=== PATIENT | male | born 1950 | race Hispanic/Latino ===

== ENCOUNTER 2020-11-11 09:59 | Inpatient (IN) | payer OTHER, MEDICARE ==
[2020-11-11] VITALS (13 sets, daily range): BP systolic 81–121; BP diastolic 46–66
[~2020-11-11] VITALS: Ht 157.5 cm; Wt 76.1 kg
[~2020-11-11 09:59] MED LIST: ACET80TA PO; AMLO-257 PO; ATOR40TA71 PO; BALS60OI TP; GLUC1VIA14 IJ; INSU100I26 SQ; LACT10SO9 PO; LEVO75TA10 PO; LOPE-198 PO; MAGIC240 MM; METO25 PO; MULT-685 PO; NYST15CR2 TP; ONDA4TAB10 PO; SENN8.6T32 PO; vit c PEG
[2020-11-11 10:19] LABS: BASOPHILS % (AUTO) 0.4 % (0.0-5.0); EOSINOPHILS % (AUTO) 0.1 % (0.0-8.0); HEMATOCRIT 33.9 % (42-54); LYMPHOCYTES % (AUTO) 8.4 % (21.0-51.0); MEAN CORPUSCULAR HGB CONC 29.2 g/dL (32.0-36.0); MEAN CORPUSCULAR VOLUME 102.7 fL (79-99); MONOCYTES % (AUTO) 2.4 % (3.0-13.0); NEUTROPHILS % (AUTO) 86.8 % (40.0-77.0); PLATELET COUNT (AUTO) 446 K/uL (130-400); RED CELL DISTRIBUTION WIDTH 17.7 % (11.0-15.5)
[2020-11-11 10:21] LABS: APPEARANCE,URINE Cloudy (CLEAR); BILIRUBIN,URINE Negative (NEGATIVE); COLOR,URINE Dark Yellow (YELLOW); GLUCOSE, URINE (UA) Negative (NEGATIVE); KETONES,URINE Negative (NEGATIVE); LEUKOCYTE ESTERASE ,URINE Trace (NEGATIVE); NITRATE,URINE Negative (NEGATIVE); OCCULT BLOOD,URINE Trace (NEGATIVE); PH,URINE 5.5 (5.0-8.0); PROTEIN,URINE POS 2+ mg/dL (NEGATIVE); UROBILINOGEN,URINE 0.2 mg/dL (0.2-1.0)
[2020-11-11 10:24] LABS: WHITE BLOOD COUNT (AUTO) 42.6 K/uL (4.8-10.8)
[2020-11-11 10:26] LABS: CARBON DIOXIDE 36 mmol/L (21-32); CHLORIDE 102 mmol/L (101-111); CREATININE 0.9 mg/dL (0.5-1.5); GLOMERULAR FILTR. RATE CALC 89 mL/min (>60); GLUCOSE,RANDOM 216 mg/dL (70-105); POTASSIUM 4.8 mmol/L (3.5-5.1); SODIUM SERUM 140 mmol/L (136-145); UREA NITROGEN, BLOOD 39 mg/dL (7-18)
[2020-11-11 10:29] LABS: INR 1.11 (0.85-1.15); PROTHROMBIN TIME 11.8 SEC (9.6-11.6)
[2020-11-11 10:30] LABS: PARTIAL THROMBOPLASTIN TIME 25.2 SEC (26.3-35.5)
[2020-11-11 10:35] LABS: BACTERIA,URINE Few /HPF (None Seen); CALCIUM OXALATE CRYSTALS,UR Moderate /LPF (None Seen); HYALINE CASTS, URINE 0-1 /LPF (0-1 /LPF); MUCUS,URINE Few LPF (None Seen)
[2020-11-11 10:37] LABS: ALANINE AMINOTRANSFERASE 17 U/L (12-78); ALBUMIN 2.2 g/dL (3.5-5.0); ASPARTATE AMINOTRANSFERASE 70 U/L (10-37); BILIRUBIN,TOTAL 0.4 mg/dL (0.2-1.0); CREATINE KINASE, TOTAL 121 U/L (21-232); MYOGLOBIN 82 ng/mL (10-92); TOTAL PROTEIN, SERUM 7.5 g/dL (6.0-8.3); TROPONIN I < 0.04 ng/mL (0.00-0.06)
[2020-11-11] MEDS ORDERED: ZOSYN 3.375GM+NS 50ML 50 ML IV ONE (10:49)
[2020-11-11] MEDS ORDERED: 0.9%NACL 1000ML 1,000 ML IV ONE (10:50)
[2020-11-11 11:09] LABS: ABG BASE EXCESS 4.8 mmol/L (-2.0-3.0); ABG HCO3 36.9 mmol/L (21.0-28.0); ABG OXYGEN SATURATION 92.2 % (95.0-99.0); ABG PCO2 98 mmHg (35-48)
[2020-11-11 11:21] LABS: BAND NEUTROPHILS % (MANUAL) 9 % (0-2); LYMPHOCYTES % (MANUAL) 14 % (22-44); METAMYELOCYTES % 1 % (0-0); MONOCYTES % (MANUAL) 3 % (2-9); SEGMENTED NEUTROPHILS % 73 % (40-70)
[2020-11-11 13:17] LABS: ABG BASE EXCESS 5.2 mmol/L (-2.0-3.0); ABG HCO3 39.2 mmol/L (21.0-28.0); ABG OXYGEN SATURATION 87.2 % (95.0-99.0); ABG PCO2 120 mmHg (35-48)
[2020-11-11 14:23] LABS: ABG BASE EXCESS 4.4 mmol/L (-2.0-3.0); ABG HCO3 33.8 mmol/L (21.0-28.0); ABG PCO2 73 mmHg (35-48)
[2020-11-11] MEDS ORDERED: MIDAZOLAM HCL 5 MG/ML 2ML VIAL IV ONE (15:32)
[2020-11-11] MEDS: LEVOFLOXACIN 500 MG/D5W 100 ML 100 ML IV SCH (15:45)
[2020-11-11] MEDS ORDERED: ZOSYN 3.375GM+NS 50ML 50 ML IV SCH (15:45)
[2020-11-11] MEDS ORDERED: NOREPINEPHRIN 4MG/NS 250ML 250 ML IV STA (15:46)
[2020-11-11] MEDS ORDERED: MAGNESIUM 2GM PREMIX 50ML 50 ML IV ONE (15:49)
[2020-11-11] MEDS ORDERED: SOLU-MEDROL 125MG VIAL ONE (16:00)
[2020-11-11] MEDS ORDERED: ETOMIDATE 20MG VIAL IVP ONE (16:29)
[2020-11-11] MEDS ORDERED: ROCURONIUM BROMIDE 10MG/1ML 5ML VL IV ONE (16:29)
[2020-11-11 16:58] LABS: ABG BASE EXCESS 4.3 mmol/L (-2.0-3.0); ABG HCO3 31.2 mmol/L (21.0-28.0); ABG OXYGEN SATURATION 88.7 % (95.0-99.0); ABG PCO2 56 mmHg (35-48)
[2020-11-11] MEDS ORDERED: LEVOFLOXACIN 500 MG/D5W 100 ML 100 ML ONE (17:46)
[2020-11-11] MEDS ORDERED: NOREPINEPHRIN 4MG/NS 250ML 250 ML IV ONE (19:43)
[2020-11-11] MEDS: ZOSYN 3.375GM+NS 50ML 50 ML IV SCH (21:07)
[2020-11-12] VITALS (30 sets, daily range): BP systolic 97–134; BP diastolic 49–72
[2020-11-12 03:04] LABS: ABG BASE EXCESS 1.5 mmol/L (-2.0-3.0); ABG HCO3 24.8 mmol/L (21.0-28.0); ABG OXYGEN SATURATION 96.8 % (95.0-99.0); ABG PCO2 35 mmHg (35-48)
[2020-11-12 03:58] LABS: BASOPHILS % (AUTO) 0.2 % (0.0-5.0); EOSINOPHILS % (AUTO) 0.2 % (0.0-8.0); HEMATOCRIT 28.2 % (42-54); LYMPHOCYTES % (AUTO) 4.5 % (21.0-51.0); MEAN CORPUSCULAR HEMOGLOBIN 29.6 pg (27.0-33.0); MEAN CORPUSCULAR HGB CONC 30.5 g/dL (32.0-36.0); MEAN CORPUSCULAR VOLUME 96.9 fL (79-99); MONOCYTES % (AUTO) 0.8 % (3.0-13.0); NEUTROPHILS % (AUTO) 93.2 % (40.0-77.0); NUCLEATED RED BLOOD CELLS 0.1 % (0.0-0.19); PLATELET COUNT (AUTO) 411 K/uL (130-400); RED BLOOD CELL COUNT(AUTO) 2.91 MIL/uL (4.50-6.20); RED CELL DISTRIBUTION WIDTH 17.4 % (11.0-15.5); WHITE BLOOD COUNT (AUTO) 29.9 K/uL (4.8-10.8)
[2020-11-12 04:27] LABS: ALBUMIN 1.9 g/dL (3.5-5.0); BILIRUBIN,TOTAL 0.9 mg/dL (0.2-1.0); CREATININE 1.3 mg/dL (0.5-1.5); POTASSIUM 4.2 mmol/L (3.5-5.1); TOTAL PROTEIN, SERUM 6.8 g/dL (6.0-8.3)
[2020-11-12 04:41] LABS: CRP QUANTITATIVE 331.7 mg/L (0.00-9.0)
[2020-11-12] MEDS: ZOSYN 3.375GM+NS 50ML 50 ML IV SCH ×3 (05:01→20:40)
[2020-11-12] MEDS: PROPOFOL 1000 MG/100 ML 100 ML IV SCH (06:34)
[2020-11-12] MEDS: ENOXAPARIN SODIUM 40 MG/0.4 ML SYRINGE SQ SCH (08:08)
[2020-11-12] MEDS: PANTOPRAZOLE 40 MG/VIAL IVP SCH (08:08)
[2020-11-12 09:20] LABS: ABG BASE EXCESS 1.7 mmol/L (-2.0-3.0); ABG PCO2 40 mmHg (35-48)
[2020-11-12] MEDS: LEVOFLOXACIN 500 MG/D5W 100 ML 100 ML IV SCH (15:20)
[2020-11-13] VITALS (36 sets, daily range): BP systolic 82–134; BP diastolic 50–88
[2020-11-13 03:45] LABS: BASOPHILS % (AUTO) 0.2 % (0.0-5.0); EOSINOPHILS % (AUTO) 0.1 % (0.0-8.0); HEMATOCRIT 28.4 % (42-54); LYMPHOCYTES % (AUTO) 4.7 % (21.0-51.0); MEAN CORPUSCULAR HEMOGLOBIN 29.6 pg (27.0-33.0); MEAN CORPUSCULAR HGB CONC 31.3 g/dL (32.0-36.0); MEAN CORPUSCULAR VOLUME 94.4 fL (79-99); NEUTROPHILS % (AUTO) 91.3 % (40.0-77.0); PLATELET COUNT (AUTO) 450 K/uL (130-400); RED BLOOD CELL COUNT(AUTO) 3.01 MIL/uL (4.50-6.20); RED CELL DISTRIBUTION WIDTH 17.6 % (11.0-15.5)
[2020-11-13 03:47] LABS: WHITE BLOOD COUNT (AUTO) 31.1 K/uL (4.8-10.8)
[2020-11-13 03:59] LABS: ALBUMIN 1.7 g/dL (3.5-5.0); BILIRUBIN,TOTAL 0.9 mg/dL (0.2-1.0); CREATININE 1.9 mg/dL (0.5-1.5); POTASSIUM 4.1 mmol/L (3.5-5.1); TOTAL PROTEIN, SERUM 6.9 g/dL (6.0-8.3)
[2020-11-13 04:18] LABS: CRP QUANTITATIVE 333.4 mg/L (0.00-9.0)
[2020-11-13] MEDS: ZOSYN 3.375GM+NS 50ML 50 ML IV SCH ×2 (04:59→12:07)
[2020-11-13 05:15] LABS: ABG BASE EXCESS 3.3 mmol/L (-2.0-3.0); ABG HCO3 26.8 mmol/L (21.0-28.0); ABG OXYGEN SATURATION 96.6 % (95.0-99.0); ABG PCO2 37 mmHg (35-48)
[2020-11-13] MEDS ORDERED: INSULIN GLARGINE 100 UNITS/ML 10 ML VIAL SQ SCH (08:30)
[2020-11-13] MEDS: PANTOPRAZOLE 40 MG/VIAL IVP SCH (09:35)
[2020-11-13] MEDS: FLUCONAZOLE 200 MG/NS 100 ML 100 ML IV SCH (09:36)
[2020-11-13] MEDS: ENOXAPARIN SODIUM 40 MG/0.4 ML SYRINGE SQ SCH (09:36)
[2020-11-13] MEDS: LACTATED RINGERS 1000ML 1,000 ML IV SCH ×2 (09:40→22:20)
[2020-11-13] MEDS ORDERED: VANCOMYCIN PROTOCOL PER PHARMACY IV SCH (14:15)
[2020-11-13] MEDS ORDERED: VANCOMYCIN 1G/250ML KIT 250 ML IV SCH (15:00)
[2020-11-13] MEDS: MEROPENEM 1 GM VIAL IVP SCH ×2 (15:09→21:48)
[2020-11-13] MEDS: FENTANYL 2500MCG+NS 250ML 250 ML IV SCH (18:46)
[2020-11-13] MEDS: PROPOFOL 1000 MG/100 ML 100 ML IV SCH (18:47)
[2020-11-14] VITALS (39 sets, daily range): BP systolic 87–185; BP diastolic 54–110
[2020-11-14] MEDS: PROPOFOL 1000 MG/100 ML 100 ML IV SCH ×2 (03:10→16:29)
[2020-11-14 03:34] LABS: BASOPHILS % (AUTO) 0.2 % (0.0-5.0); HEMATOCRIT 29.5 % (42-54); LYMPHOCYTES % (AUTO) 3.1 % (21.0-51.0); MEAN CORPUSCULAR HEMOGLOBIN 29.6 pg (27.0-33.0); MEAN CORPUSCULAR HGB CONC 31.5 g/dL (32.0-36.0); MEAN CORPUSCULAR VOLUME 93.9 fL (79-99); MONOCYTES % (AUTO) 1.9 % (3.0-13.0); NEUTROPHILS % (AUTO) 92.6 % (40.0-77.0); PLATELET COUNT (AUTO) 365 K/uL (130-400); RED BLOOD CELL COUNT(AUTO) 3.14 MIL/uL (4.50-6.20); RED CELL DISTRIBUTION WIDTH 17.6 % (11.0-15.5); WHITE BLOOD COUNT (AUTO) 26.8 K/uL (4.8-10.8)
[2020-11-14 03:39] LABS: ABG BASE EXCESS 3.2 mmol/L (-2.0-3.0); ABG OXYGEN SATURATION 93.1 % (95.0-99.0); ABG PCO2 43 mmHg (35-48)
[2020-11-14 03:46] LABS: ALBUMIN 1.5 g/dL (3.5-5.0); BILIRUBIN,TOTAL 0.7 mg/dL (0.2-1.0); CREATININE 1.8 mg/dL (0.5-1.5); TOTAL PROTEIN, SERUM 6.2 g/dL (6.0-8.3)
[2020-11-14 04:02] LABS: CRP QUANTITATIVE 199.1 mg/L (0.00-9.0)
[2020-11-14] MEDS: LACTATED RINGERS 1000ML 1,000 ML IV SCH ×2 (04:15→21:30)
[2020-11-14] MEDS: MEROPENEM 1 GM VIAL IVP SCH ×3 (05:50→21:28)
[2020-11-14] MEDS: PANTOPRAZOLE 40 MG/VIAL IVP SCH (08:41)
[2020-11-14] MEDS: FLUCONAZOLE 200 MG/NS 100 ML 100 ML IV SCH (08:44)
[2020-11-14] MEDS: LEVOTHYROXINE 75 MCG TABLET PO SCH (09:46)
[2020-11-14] MEDS ORDERED: LACTATED RINGERS 1000ML 1,000 ML IV ONE ×2 (16:22→21:15)
[2020-11-14] MEDS: FENTANYL 2500MCG+NS 250ML 250 ML IV SCH (16:27)
[2020-11-14] MEDS ORDERED: 0.9%NACL 10ML VIAL ONE (21:15)
[2020-11-15] VITALS (40 sets, daily range): BP systolic 77–133; BP diastolic 42–81
[2020-11-15 00:49] LABS: CREATININE,URINE RANDOM 42 mg/dL (30-135); SODIUM,URINE RANDOM 26 mmol/l (40-220)
[2020-11-15 05:06] LABS: ABG BASE EXCESS -1.8 mmol/L (-2.0-3.0); ABG HCO3 25.3 mmol/L (21.0-28.0); ABG OXYGEN SATURATION 92.2 % (95.0-99.0); ABG PCO2 52 mmHg (35-48)
[2020-11-15] MEDS ORDERED: 0.9%NACL 10ML VIAL ONE (05:20)
[2020-11-15 05:33] LABS: BASOPHILS % (AUTO) 0.3 % (0.0-5.0); EOSINOPHILS % (AUTO) 0.2 % (0.0-8.0); HEMATOCRIT 29.9 % (42-54); LYMPHOCYTES % (AUTO) 9.2 % (21.0-51.0); MEAN CORPUSCULAR HEMOGLOBIN 29.8 pg (27.0-33.0); MEAN CORPUSCULAR HGB CONC 30.4 g/dL (32.0-36.0); MONOCYTES % (AUTO) 2.4 % (3.0-13.0); NEUTROPHILS % (AUTO) 86.4 % (40.0-77.0); PLATELET COUNT (AUTO) 329 K/uL (130-400); RED BLOOD CELL COUNT(AUTO) 3.05 MIL/uL (4.50-6.20); RED CELL DISTRIBUTION WIDTH 17.5 % (11.0-15.5); WHITE BLOOD COUNT (AUTO) 23.1 K/uL (4.8-10.8)
[2020-11-15] MEDS: MEROPENEM 1 GM VIAL IVP SCH ×3 (05:50→22:55)
[2020-11-15 05:51] LABS: CREATININE 1.5 mg/dL (0.5-1.5); MAGNESIUM 1.8 mg/dL (1.80-2.40)
[2020-11-15] MEDS ORDERED: ZINC OXIDE OINT 60GM TUBE TP SCH (09:00)
[2020-11-15] MEDS ORDERED: ZINC OXIDE OINT 30GM TUBE TP SCH (09:00)
[2020-11-15] MEDS: LACTATED RINGERS 1000ML 1,000 ML IV SCH (10:15)
[2020-11-15] MEDS: PANTOPRAZOLE 40 MG/VIAL IVP SCH (10:16)
[2020-11-15] MEDS: LEVOTHYROXINE 75 MCG TABLET PO SCH (10:16)
[2020-11-15] MEDS: FLUCONAZOLE 200 MG/NS 100 ML 100 ML IV SCH (10:17)
[2020-11-15] MEDS: PROPOFOL 1000 MG/100 ML 100 ML IV SCH (10:47)
[2020-11-15] MEDS: MAGNESIUM 2GM PREMIX 50ML 50 ML IV SCH (16:23)
[2020-11-15] MEDS: DEXMEDETOMIDINE HCL 400 MCG in 0.9%NACL 100ML 100 ML IV SCH (21:38)
[2020-11-15] MEDS: ATORVASTATIN 40 MG TABLET PO SCH (22:54)
[2020-11-16] VITALS (38 sets, daily range): BP systolic 100–165; BP diastolic 58–96
[2020-11-16 03:49] LABS: BASOPHILS % (AUTO) 0.3 % (0.0-5.0); EOSINOPHILS % (AUTO) 0.2 % (0.0-8.0); HEMATOCRIT 29.9 % (42-54); LYMPHOCYTES % (AUTO) 6.5 % (21.0-51.0); MEAN CORPUSCULAR HEMOGLOBIN 29.4 pg (27.0-33.0); MEAN CORPUSCULAR HGB CONC 30.4 g/dL (32.0-36.0); MEAN CORPUSCULAR VOLUME 96.8 fL (79-99); MONOCYTES % (AUTO) 2.5 % (3.0-13.0); PLATELET COUNT (AUTO) 328 K/uL (130-400); RED BLOOD CELL COUNT(AUTO) 3.09 MIL/uL (4.50-6.20); RED CELL DISTRIBUTION WIDTH 17.2 % (11.0-15.5); WHITE BLOOD COUNT (AUTO) 21.1 K/uL (4.8-10.8)
[2020-11-16 04:01] LABS: CREATININE 1.3 mg/dL (0.5-1.5); MAGNESIUM 2.2 mg/dL (1.80-2.40); PHOSPHORUS 4.2 mg/dL (2.5-4.9); POTASSIUM 4.2 mmol/L (3.5-5.1)
[2020-11-16] MEDS: MEROPENEM 1 GM VIAL IVP SCH ×3 (06:15→21:18)
[2020-11-16 06:33] LABS: ALBUMIN 1.4 g/dL (3.5-5.0); BILIRUBIN,TOTAL 0.8 mg/dL (0.2-1.0); TOTAL PROTEIN, SERUM 6.2 g/dL (6.0-8.3)
[2020-11-16 07:27] LABS: ABG BASE EXCESS 2.1 mmol/L (-2.0-3.0); ABG HCO3 27.5 mmol/L (21.0-28.0); ABG OXYGEN SATURATION 94.4 % (95.0-99.0); ABG PCO2 46 mmHg (35-48)
[2020-11-16] MEDS: LEVOTHYROXINE 75 MCG TABLET PO SCH (09:14)
[2020-11-16] MEDS: PANTOPRAZOLE 40 MG/VIAL IVP SCH (09:14)
[2020-11-16] MEDS: FLUCONAZOLE 200 MG/NS 100 ML 100 ML IV SCH (09:14)
[2020-11-16] MEDS: DEXMEDETOMIDINE HCL 400 MCG in 0.9%NACL 100ML 100 ML IV SCH ×3 (10:44→19:28)
[2020-11-16 15:53] LABS: APPEARANCE,URINE Cloudy (CLEAR); BILIRUBIN,URINE Negative (NEGATIVE); COLOR,URINE Yellow (YELLOW); GLUCOSE, URINE (UA) TRACE mg/dL (NEGATIVE); KETONES,URINE Trace mg/dL (NEGATIVE); LEUKOCYTE ESTERASE ,URINE Trace (NEGATIVE); NITRATE,URINE Negative (NEGATIVE); OCCULT BLOOD,URINE Moderate (NEGATIVE); PROTEIN,URINE POS 1+ mg/dL (NEGATIVE); UROBILINOGEN,URINE 0.2 mg/dL (0.2-1.0)
[2020-11-16] MEDS ORDERED: HYDROCHLOROTHIAZIDE 25 MG TABLET PO SCH (16:00)
[2020-11-16 16:02] LABS: BACTERIA,URINE Few /HPF (None Seen); MUCUS,URINE Few LPF (None Seen); SQUAMOUS EPITHELIAL CELL,UR Few /HPF (0-2)
[2020-11-16] MEDS: INSULIN HUMULIN R 100 UNIT/ML 3ML SQ SCH (18:00)
[2020-11-16] MEDS: BALSAM PERU/CASTOR OIL 60 GM TUBE TP SCH (20:36)
[2020-11-16] MEDS: ATORVASTATIN 40 MG TABLET PO SCH (20:36)
[2020-11-17] VITALS (23 sets, daily range): BP systolic 96–135; BP diastolic 47–81
[2020-11-17] MEDS: INSULIN HUMULIN R 100 UNIT/ML 3ML SQ SCH ×4 (00:05→18:11)
[2020-11-17] MEDS: DEXMEDETOMIDINE HCL 400 MCG in 0.9%NACL 100ML 100 ML IV SCH ×6 (00:58→23:24)
[2020-11-17 05:31] LABS: BASOPHILS % (AUTO) 0.2 % (0.0-5.0); EOSINOPHILS % (AUTO) 1.3 % (0.0-8.0); HEMATOCRIT 27.8 % (42-54); LYMPHOCYTES % (AUTO) 9.2 % (21.0-51.0); MEAN CORPUSCULAR HEMOGLOBIN 29.6 pg (27.0-33.0); MEAN CORPUSCULAR HGB CONC 31.3 g/dL (32.0-36.0); MEAN CORPUSCULAR VOLUME 94.6 fL (79-99); MONOCYTES % (AUTO) 2.8 % (3.0-13.0); NEUTROPHILS % (AUTO) 84.9 % (40.0-77.0); PLATELET COUNT (AUTO) 324 K/uL (130-400); RED BLOOD CELL COUNT(AUTO) 2.94 MIL/uL (4.50-6.20); WHITE BLOOD COUNT (AUTO) 14.8 K/uL (4.8-10.8)
[2020-11-17 05:57] LABS: MAGNESIUM 1.7 mg/dL (1.80-2.40); POTASSIUM 3.8 mmol/L (3.5-5.1)
[2020-11-17] MEDS: MEROPENEM 1 GM VIAL IVP SCH ×3 (06:10→22:08)
[2020-11-17] MEDS: MAGNESIUM 2GM PREMIX 50ML 50 ML IV SCH (06:11)
[2020-11-17] MEDS: LACTATED RINGERS 1000ML 1,000 ML IV SCH (06:19)
[2020-11-17] MEDS: FLUCONAZOLE 200 MG/NS 100 ML 100 ML IV SCH (10:14)
[2020-11-17] MEDS: LEVOTHYROXINE 75 MCG TABLET PO SCH (10:14)
[2020-11-17] MEDS: PANTOPRAZOLE 40 MG/VIAL IVP SCH (10:14)
[2020-11-17] MEDS: BALSAM PERU/CASTOR OIL 60 GM TUBE TP SCH ×3 (10:15→20:46)
[2020-11-17] MEDS: ATORVASTATIN 40 MG TABLET PO SCH (20:46)
[2020-11-18] VITALS (25 sets, daily range): BP systolic 99–184; BP diastolic 27–100
[2020-11-18] MEDS: DEXMEDETOMIDINE HCL 400 MCG in 0.9%NACL 100ML 100 ML IV SCH (02:47)
[2020-11-18 05:02] LABS: BASOPHILS % (AUTO) 0.3 % (0.0-5.0); EOSINOPHILS % (AUTO) 1.7 % (0.0-8.0); HEMATOCRIT 29.1 % (42-54); LYMPHOCYTES % (AUTO) 12.7 % (21.0-51.0); MEAN CORPUSCULAR HEMOGLOBIN 28.9 pg (27.0-33.0); MEAN CORPUSCULAR HGB CONC 30.9 g/dL (32.0-36.0); MEAN CORPUSCULAR VOLUME 93.6 fL (79-99); PLATELET COUNT (AUTO) 342 K/uL (130-400); RED BLOOD CELL COUNT(AUTO) 3.11 MIL/uL (4.50-6.20); RED CELL DISTRIBUTION WIDTH 16.9 % (11.0-15.5)
[2020-11-18 05:14] LABS: ALBUMIN 1.2 g/dL (3.5-5.0); BILIRUBIN,TOTAL 0.5 mg/dL (0.2-1.0); CREATININE 0.8 mg/dL (0.5-1.5); MAGNESIUM 2.5 mg/dL (1.80-2.40); POTASSIUM 3.8 mmol/L (3.5-5.1); TOTAL PROTEIN, SERUM 5.4 g/dL (6.0-8.3)
[2020-11-18 05:15] LABS: INR 1.03 (0.85-1.15); PROTHROMBIN TIME 11.2 SEC (9.6-11.6)
[2020-11-18 05:17] LABS: PARTIAL THROMBOPLASTIN TIME 26.4 SEC (26.3-35.5)
[2020-11-18] MEDS: MEROPENEM 1 GM VIAL IVP SCH ×3 (05:41→22:13)
[2020-11-18] MEDS: INSULIN HUMULIN R 100 UNIT/ML 3ML SQ SCH ×4 (05:41→17:56)
[2020-11-18 07:33] LABS: ABG HCO3 26.3 mmol/L (21.0-28.0); ABG OXYGEN SATURATION 93.8 % (95.0-99.0); ABG PCO2 36 mmHg (35-48)
[2020-11-18] MEDS: PANTOPRAZOLE 40 MG/VIAL IVP SCH (08:32)
[2020-11-18] MEDS: LEVOTHYROXINE 75 MCG TABLET PO SCH (08:33)
[2020-11-18] MEDS: BALSAM PERU/CASTOR OIL 60 GM TUBE TP SCH ×3 (08:33→20:45)
[2020-11-18] MEDS: LACTATED RINGERS 1000ML 1,000 ML IV SCH (09:29)
[2020-11-18] MEDS ORDERED: LABETALOL 20MG SYG IV PRN (11:45)
[2020-11-18] MEDS ORDERED: FUROSEMIDE 40MG VIAL IV SCH (11:45)
[2020-11-18] MEDS: ATORVASTATIN 40 MG TABLET PO SCH (20:45)
[2020-11-19] VITALS (25 sets, daily range): BP systolic 92–155; BP diastolic 47–68
[2020-11-19] MEDS: LACTATED RINGERS 1000ML 1,000 ML IV SCH ×2 (04:15→21:45)
[2020-11-19 05:09] LABS: BASOPHILS % (AUTO) 0.3 % (0.0-5.0); EOSINOPHILS % (AUTO) 0.1 % (0.0-8.0); HEMATOCRIT 30.7 % (42-54); LYMPHOCYTES % (AUTO) 7.5 % (21.0-51.0); MEAN CORPUSCULAR HEMOGLOBIN 29.6 pg (27.0-33.0); MEAN CORPUSCULAR HGB CONC 29.3 g/dL (32.0-36.0); MONOCYTES % (AUTO) 2.1 % (3.0-13.0); PLATELET COUNT (AUTO) 350 K/uL (130-400); RED BLOOD CELL COUNT(AUTO) 3.04 MIL/uL (4.50-6.20); RED CELL DISTRIBUTION WIDTH 17.1 % (11.0-15.5); WHITE BLOOD COUNT (AUTO) 27.6 K/uL (4.8-10.8)
[2020-11-19 05:15] LABS: CREATININE 0.9 mg/dL (0.5-1.5); POTASSIUM 3.7 mmol/L (3.5-5.1)
[2020-11-19] MEDS: INSULIN HUMULIN R 100 UNIT/ML 3ML SQ SCH ×5 (05:20→23:31)
[2020-11-19] MEDS: MEROPENEM 1 GM VIAL IVP SCH ×3 (05:22→21:38)
[2020-11-19] MEDS: BALSAM PERU/CASTOR OIL 60 GM TUBE TP SCH ×3 (08:57→21:29)
[2020-11-19] MEDS: PANTOPRAZOLE 40 MG/VIAL IVP SCH (08:57)
[2020-11-19] MEDS: LEVOTHYROXINE 75 MCG TABLET PO SCH (08:57)
[2020-11-19 11:28] LABS: ABG BASE EXCESS -4.6 mmol/L (-2.0-3.0); ABG HCO3 26.5 mmol/L (21.0-28.0); ABG OXYGEN SATURATION 53.1 % (95.0-99.0); ABG PCO2 79 mmHg (35-48)
[2020-11-19 11:41] LABS: ABG BASE EXCESS -2.8 mmol/L (-2.0-3.0); ABG HCO3 27.5 mmol/L (21.0-28.0); ABG OXYGEN SATURATION 96.7 % (95.0-99.0); ABG PCO2 75 mmHg (35-48)
[2020-11-19 18:47] LABS: ABG BASE EXCESS -2.7 mmol/L (-2.0-3.0); ABG HCO3 25.7 mmol/L (21.0-28.0); ABG OXYGEN SATURATION 96.5 % (95.0-99.0); ABG PCO2 59 mmHg (35-48)
[2020-11-19] MEDS: ATORVASTATIN 40 MG TABLET PO SCH (21:29)
[2020-11-20] VITALS (25 sets, daily range): BP systolic 121–164; BP diastolic 53–110
[2020-11-20 04:30] LABS: ABG BASE EXCESS -1.7 mmol/L (-2.0-3.0); ABG HCO3 27.9 mmol/L (21.0-28.0); ABG OXYGEN SATURATION 98.7 % (95.0-99.0); ABG PCO2 70 mmHg (35-48)
[2020-11-20] MEDS: INSULIN HUMULIN R 100 UNIT/ML 3ML SQ SCH (05:01)
[2020-11-20] MEDS: MEROPENEM 1 GM VIAL IVP SCH ×3 (05:01→21:10)
[2020-11-20 05:18] LABS: ALBUMIN 1.3 g/dL (3.5-5.0); BILIRUBIN,TOTAL 0.4 mg/dL (0.2-1.0); TOTAL PROTEIN, SERUM 5.8 g/dL (6.0-8.3)
[2020-11-20] MEDS: PANTOPRAZOLE 40 MG/VIAL IVP SCH (08:50)
[2020-11-20] MEDS: LEVOTHYROXINE 75 MCG TABLET PO SCH (08:51)
[2020-11-20] MEDS: BALSAM PERU/CASTOR OIL 60 GM TUBE TP SCH ×3 (12:17→21:11)
[2020-11-20] MEDS: LACTATED RINGERS 1000ML 1,000 ML IV SCH (19:36)
[2020-11-20] MEDS: ATORVASTATIN 40 MG TABLET PO SCH (21:05)
[2020-11-21] VITALS (30 sets, daily range): BP systolic 91–186; BP diastolic 52–103
[2020-11-21 04:51] LABS: BASOPHILS % (AUTO) 0.2 % (0.0-5.0); EOSINOPHILS % (AUTO) 0.1 % (0.0-8.0); HEMATOCRIT 28.8 % (42-54); LYMPHOCYTES % (AUTO) 8.6 % (21.0-51.0); MEAN CORPUSCULAR HEMOGLOBIN 29.7 pg (27.0-33.0); MEAN CORPUSCULAR HGB CONC 28.8 g/dL (32.0-36.0); MEAN CORPUSCULAR VOLUME 103.2 fL (79-99); MONOCYTES % (AUTO) 2.2 % (3.0-13.0); NEUTROPHILS % (AUTO) 87.8 % (40.0-77.0); NUCLEATED RED BLOOD CELLS 0.1 % (0.0-0.19); PLATELET COUNT (AUTO) 367 K/uL (130-400); RED BLOOD CELL COUNT(AUTO) 2.79 MIL/uL (4.50-6.20); RED CELL DISTRIBUTION WIDTH 17.6 % (11.0-15.5); WHITE BLOOD COUNT (AUTO) 24.2 K/uL (4.8-10.8)
[2020-11-21 05:00] LABS: ALBUMIN 1.4 g/dL (3.5-5.0); BILIRUBIN,TOTAL 0.3 mg/dL (0.2-1.0); CREATININE 0.9 mg/dL (0.5-1.5); POTASSIUM 4.6 mmol/L (3.5-5.1); TOTAL PROTEIN, SERUM 6.1 g/dL (6.0-8.3)
[2020-11-21] MEDS: MEROPENEM 1 GM VIAL IVP SCH ×2 (05:38→21:07)
[2020-11-21] MEDS: INSULIN HUMULIN R 100 UNIT/ML 3ML SQ SCH ×3 (06:00→11:40)
[2020-11-21] MEDS: PANTOPRAZOLE 40 MG/VIAL IVP SCH (09:37)
[2020-11-21] MEDS: LEVOTHYROXINE 75 MCG TABLET PO SCH (09:37)
[2020-11-21] MEDS: BALSAM PERU/CASTOR OIL 60 GM TUBE TP SCH ×2 (09:43→21:00)
[2020-11-21 18:06] LABS: THYROID STIMULATING HORMONE 1.97 uIU/mL (0.36-3.74)
[2020-11-21] MEDS ORDERED: PROPOFOL 1000 MG/100 ML IV PRN (18:15)
[2020-11-21] MEDS ORDERED: FENTANYL CITRATE PF 0.05 MG/ML 1,000 MCG in 0.9%NACL 100ML 100 ML IVPB SCH (18:15)
[2020-11-21] MEDS ORDERED: PROPOFOL 1000 MG/100 ML 100 ML IV SCH (18:30)
[2020-11-21 20:52] LABS: ABG BASE EXCESS 6.4 mmol/L (-2.0-3.0); ABG HCO3 30.2 mmol/L (21.0-28.0); ABG OXYGEN SATURATION 99.7 % (95.0-99.0); ABG PCO2 40 mmHg (35-48)
[2020-11-21] MEDS: ATORVASTATIN 40 MG TABLET PO SCH (21:00)
[2020-11-22] VITALS (48 sets, daily range): BP systolic 100–173; BP diastolic 40–92
[2020-11-22] MEDS: PROPOFOL 1000 MG/100 ML 100 ML IV SCH ×4 (01:36→20:14)
[2020-11-22] MEDS: MEROPENEM 1 GM VIAL IVP SCH ×3 (05:27→21:06)
[2020-11-22] MEDS: INSULIN HUMULIN R 100 UNIT/ML 3ML SQ SCH ×5 (05:27→17:59)
[2020-11-22 05:49] LABS: MEAN CORPUSCULAR HEMOGLOBIN 28.8 pg (27.0-33.0); MEAN CORPUSCULAR HGB CONC 28.8 g/dL (32.0-36.0); PLATELET COUNT (AUTO) 292 K/uL (130-400); RED CELL DISTRIBUTION WIDTH 17.3 % (11.0-15.5); WHITE BLOOD COUNT (AUTO) 11.3 K/uL (4.8-10.8)
[2020-11-22 06:14] LABS: ALBUMIN 1.2 g/dL (3.5-5.0); BILIRUBIN,TOTAL 0.5 mg/dL (0.2-1.0); CREATININE 0.7 mg/dL (0.5-1.5); MAGNESIUM 1.6 mg/dL (1.80-2.40); PHOSPHORUS 2.1 mg/dL (2.5-4.9); POTASSIUM 3.8 mmol/L (3.5-5.1); TOTAL PROTEIN, SERUM 5.4 g/dL (6.0-8.3)
[2020-11-22 06:53] LABS: ABG BASE EXCESS 7.7 mmol/L (-2.0-3.0); ABG PCO2 39 mmHg (35-48)
[2020-11-22 07:40] LABS: BAND NEUTROPHILS % (MANUAL) 2 % (0-2); LYMPHOCYTES % (MANUAL) 11 % (22-44); MONOCYTES % (MANUAL) 2 % (2-9); SEGMENTED NEUTROPHILS % 85 % (40-70)
[2020-11-22 07:41] LABS: MAN.DIFF COMMENT-IMPRESSION MANUAL DIFFERENTIAL; PLATELET MORPHOLOGY COMMENT ADEQUATE
[2020-11-22] MEDS ORDERED: DEXTROSE 5%-WATER 1,000 ML IV SCH ×2 (07:45→14:59)
[2020-11-22] MEDS: LEVOTHYROXINE 75 MCG TABLET PO SCH (07:59)
[2020-11-22] MEDS: PANTOPRAZOLE 40 MG/VIAL IVP SCH (07:59)
[2020-11-22] MEDS: MAGNESIUM 2GM PREMIX 50ML 50 ML IV SCH (07:59)
[2020-11-22] MEDS: BALSAM PERU/CASTOR OIL 60 GM TUBE TP SCH ×3 (08:00→21:07)
[2020-11-22] MEDS ORDERED: LACTULOSE 20 GM/30 ML UDCUP PO PRN (09:30)
[2020-11-22] MEDS ORDERED: FUROSEMIDE 20MG VIAL IV SCH (11:15)
[2020-11-22] MEDS: FENTANYL 2500MCG+NS 250ML 250 ML IV SCH (11:47)
[2020-11-22] MEDS: ENOXAPARIN SODIUM 40 MG/0.4 ML SYRINGE SQ SCH (11:48)
[2020-11-22] MEDS ORDERED: POTASSIUM CHLORIDE 20MEQ/100ML 100 ML IV ONE (11:57)
[2020-11-22] MEDS ORDERED: LIDOCAINE HCL-MPF 1% 2ML VIAL ONE (11:57)
[2020-11-22] MEDS ORDERED: LIDOCAINE HCL-MPF 1% 2ML VIAL IV PRN (12:00)
[2020-11-22 12:41] LABS: ABG BASE EXCESS 7.1 mmol/L (-2.0-3.0); ABG HCO3 30.4 mmol/L (21.0-28.0); ABG OXYGEN SATURATION 97.9 % (95.0-99.0); ABG PCO2 38 mmHg (35-48)
[2020-11-22 14:07] LABS: APPEARANCE,URINE Cloudy (CLEAR); BILIRUBIN,URINE Negative (NEGATIVE); COLOR,URINE Yellow (YELLOW); GLUCOSE, URINE (UA) Negative (NEGATIVE); KETONES,URINE Negative (NEGATIVE); LEUKOCYTE ESTERASE ,URINE Trace (NEGATIVE); NITRATE,URINE Negative (NEGATIVE); OCCULT BLOOD,URINE Trace (NEGATIVE); PROTEIN,URINE Negative (NEGATIVE); UROBILINOGEN,URINE 0.2 mg/dL (0.2-1.0)
[2020-11-22 14:24] LABS: BACTERIA,URINE Few /HPF (None Seen)
[2020-11-22 14:25] LABS: RBC,URINE 0-1 /HPF (0-1); SQUAMOUS EPITHELIAL CELL,UR 0-2 /HPF (0-2)
[2020-11-22] MEDS: ATORVASTATIN 40 MG TABLET PO SCH (20:13)
[2020-11-23] VITALS (45 sets, daily range): BP systolic 88–153; BP diastolic 42–79
[2020-11-23] MEDS: INSULIN HUMULIN R 100 UNIT/ML 3ML SQ SCH ×4 (00:30→17:29)
[2020-11-23 03:27] LABS: ABG BASE EXCESS 2.8 mmol/L (-2.0-3.0); ABG HCO3 28.3 mmol/L (21.0-28.0); ABG OXYGEN SATURATION 98.3 % (95.0-99.0); ABG PCO2 47 mmHg (35-48)
[2020-11-23 03:50] LABS: HEMATOCRIT 25.8 % (42-54); MEAN CORPUSCULAR HEMOGLOBIN 29.3 pg (27.0-33.0); MEAN CORPUSCULAR HGB CONC 29.8 g/dL (32.0-36.0); MEAN CORPUSCULAR VOLUME 98.1 fL (79-99); RED BLOOD CELL COUNT(AUTO) 2.63 MIL/uL (4.50-6.20); RED CELL DISTRIBUTION WIDTH 17.2 % (11.0-15.5); WHITE BLOOD COUNT (AUTO) 13.8 K/uL (4.8-10.8)
[2020-11-23 04:06] LABS: CREATININE 0.8 mg/dL (0.5-1.5); PHOSPHORUS 2.7 mg/dL (2.5-4.9); POTASSIUM 3.6 mmol/L (3.5-5.1)
[2020-11-23] MEDS: PROPOFOL 1000 MG/100 ML 100 ML IV SCH ×3 (05:59→23:13)
[2020-11-23] MEDS: MEROPENEM 1 GM VIAL IVP SCH ×3 (05:59→22:57)
[2020-11-23] MEDS: PANTOPRAZOLE 40 MG/VIAL IVP SCH (07:58)
[2020-11-23] MEDS: LEVOTHYROXINE 75 MCG TABLET PO SCH (07:58)
[2020-11-23] MEDS: ENOXAPARIN SODIUM 40 MG/0.4 ML SYRINGE SQ SCH (08:00)
[2020-11-23] MEDS: POTASSIUM CHLORIDE 20MEQ/100ML 100 ML IV PRN (08:01)
[2020-11-23] MEDS: BALSAM PERU/CASTOR OIL 60 GM TUBE TP SCH ×3 (09:56→21:00)
[2020-11-23] MEDS ORDERED: FENTANYL CITRATE PF 50 MCG/1 ML 2ML VIAL IVP PRN (11:00)
[2020-11-23] MEDS: DEXMEDETOMIDINE HCL IV SCH (12:27)
[2020-11-23] MEDS: [UNRECOGNIZED DRUG - OTHER] IV SCH (12:27)
[2020-11-23] MEDS ORDERED: PROPOFOL 1000 MG/100 ML 100 ML IV ONE ×2 (12:49→23:01)
[2020-11-23] MEDS: FUROSEMIDE 20MG VIAL IV SCH (15:10)
[2020-11-23] MEDS: ATORVASTATIN 40 MG TABLET PO SCH (21:00)
[2020-11-24] VITALS (67 sets, daily range): BP systolic 81–153; BP diastolic 43–98
[2020-11-24] MEDS: FUROSEMIDE 20MG VIAL IV SCH ×2 (02:09→14:35)
[2020-11-24 04:02] LABS: HEMATOCRIT 27.9 % (42-54); MEAN CORPUSCULAR HGB CONC 29.4 g/dL (32.0-36.0); MEAN CORPUSCULAR VOLUME 98.6 fL (79-99); RED BLOOD CELL COUNT(AUTO) 2.83 MIL/uL (4.50-6.20); RED CELL DISTRIBUTION WIDTH 16.9 % (11.0-15.5)
[2020-11-24 04:09] LABS: CREATININE 0.7 mg/dL (0.5-1.5); MAGNESIUM 1.7 mg/dL (1.80-2.40); PHOSPHORUS 3.4 mg/dL (2.5-4.9); POTASSIUM 3.9 mmol/L (3.5-5.1)
[2020-11-24] MEDS: MAGNESIUM 2GM PREMIX 50ML 50 ML IV SCH (04:21)
[2020-11-24] MEDS ORDERED: FENTANYL 2500MCG+NS 250ML 250 ML IV ONE (04:28)
[2020-11-24] MEDS: FENTANYL 2500MCG+NS 250ML 250 ML IV SCH (04:28)
[2020-11-24] MEDS: INSULIN HUMULIN R 100 UNIT/ML 3ML SQ SCH ×4 (05:39→18:00)
[2020-11-24] MEDS: MEROPENEM 1 GM VIAL IVP SCH ×3 (05:45→22:21)
[2020-11-24] MEDS: PROPOFOL 1000 MG/100 ML IV PRN ×2 (06:37→19:46)
[2020-11-24 06:52] LABS: ABG BASE EXCESS 7.7 mmol/L (-2.0-3.0); ABG HCO3 32.2 mmol/L (21.0-28.0); ABG OXYGEN SATURATION 88.3 % (95.0-99.0); ABG PCO2 44 mmHg (35-48)
[2020-11-24] MEDS: LEVOTHYROXINE 75 MCG TABLET PO SCH (08:32)
[2020-11-24] MEDS: PANTOPRAZOLE 40 MG/VIAL IVP SCH (08:32)
[2020-11-24] MEDS: BALSAM PERU/CASTOR OIL 60 GM TUBE TP SCH ×3 (08:34→20:36)
[2020-11-24] MEDS: ENOXAPARIN SODIUM 40 MG/0.4 ML SYRINGE SQ SCH (08:36)
[2020-11-24] MEDS: ATORVASTATIN 40 MG TABLET PO SCH (20:36)
[2020-11-24] MEDS: QUETIAPINE FUMARATE 25 MG TAB PEG SCH (20:36)
[2020-11-24] MEDS ORDERED: DEXTROSE 50%-WATER 50 ML DISP.SYRIN IV ONE (20:51)
[2020-11-25] VITALS (71 sets, daily range): BP systolic 83–154; BP diastolic 47–101
[2020-11-25] MEDS: FUROSEMIDE 20MG VIAL IV SCH ×2 (02:23→14:23)
[2020-11-25] MEDS: PROPOFOL 1000 MG/100 ML IV PRN ×3 (03:18→23:36)
[2020-11-25 04:10] LABS: BASOPHILS % (AUTO) 0.6 % (0.0-5.0); HEMATOCRIT 25.9 % (42-54); LYMPHOCYTES % (AUTO) 9.9 % (21.0-51.0); MEAN CORPUSCULAR HEMOGLOBIN 28.6 pg (27.0-33.0); MEAN CORPUSCULAR HGB CONC 29.3 g/dL (32.0-36.0); MEAN CORPUSCULAR VOLUME 97.4 fL (79-99); MONOCYTES % (AUTO) 2.2 % (3.0-13.0); NEUTROPHILS % (AUTO) 84.4 % (40.0-77.0); PLATELET COUNT (AUTO) 279 K/uL (130-400); RED BLOOD CELL COUNT(AUTO) 2.66 MIL/uL (4.50-6.20); RED CELL DISTRIBUTION WIDTH 16.9 % (11.0-15.5); WHITE BLOOD COUNT (AUTO) 14.1 K/uL (4.8-10.8)
[2020-11-25 04:25] LABS: CREATININE 0.7 mg/dL (0.5-1.5); MAGNESIUM 2.1 mg/dL (1.80-2.40); PHOSPHORUS 3.8 mg/dL (2.5-4.9); POTASSIUM 3.9 mmol/L (3.5-5.1)
[2020-11-25] MEDS: INSULIN HUMULIN R 100 UNIT/ML 3ML SQ SCH ×5 (05:35→23:44)
[2020-11-25] MEDS: MEROPENEM 1 GM VIAL IVP SCH ×3 (05:35→22:10)
[2020-11-25 05:36] LABS: ABG HCO3 32.4 mmol/L (21.0-28.0); ABG OXYGEN SATURATION 93.9 % (95.0-99.0); ABG PCO2 54 mmHg (35-48)
[2020-11-25] MEDS: PANTOPRAZOLE 40 MG/VIAL IVP SCH (08:46)
[2020-11-25] MEDS: LEVOTHYROXINE 75 MCG TABLET PO SCH (08:46)
[2020-11-25] MEDS: QUETIAPINE FUMARATE 25 MG TAB PEG SCH (08:46)
[2020-11-25] MEDS: ENOXAPARIN SODIUM 40 MG/0.4 ML SYRINGE SQ SCH (08:47)
[2020-11-25] MEDS: BALSAM PERU/CASTOR OIL 60 GM TUBE TP SCH ×3 (09:08→22:12)
[2020-11-25] MEDS ORDERED: FENTANYL 2500MCG+NS 250ML 250 ML IV ONE (09:30)
[2020-11-25] MEDS: QUETIAPINE FUMARATE 25 MG TAB PO SCH (20:39)
[2020-11-25] MEDS: ATORVASTATIN 40 MG TABLET PO SCH (20:39)
[2020-11-26] VITALS (21 sets, daily range): BP systolic 101–150; BP diastolic 54–72
[2020-11-26] MEDS: FUROSEMIDE 20MG VIAL IV SCH ×2 (02:10→15:08)
[2020-11-26 05:11] LABS: ABG BASE EXCESS 8.9 mmol/L (-2.0-3.0); ABG HCO3 34.3 mmol/L (21.0-28.0); ABG PCO2 50 mmHg (35-48)
[2020-11-26 05:31] LABS: ABG BASE EXCESS 11.4 mmol/L (-2.0-3.0); ABG HCO3 36.7 mmol/L (21.0-28.0); ABG OXYGEN SATURATION 95.3 % (95.0-99.0); ABG PCO2 49 mmHg (35-48)
[2020-11-26 05:53] LABS: BASOPHILS % (AUTO) 0.4 % (0.0-5.0); HEMATOCRIT 25.2 % (42-54); LYMPHOCYTES % (AUTO) 12.3 % (21.0-51.0); MEAN CORPUSCULAR HEMOGLOBIN 29.6 pg (27.0-33.0); MEAN CORPUSCULAR HGB CONC 30.2 g/dL (32.0-36.0); MEAN CORPUSCULAR VOLUME 98.1 fL (79-99); MONOCYTES % (AUTO) 2.6 % (3.0-13.0); NEUTROPHILS % (AUTO) 82.7 % (40.0-77.0); PLATELET COUNT (AUTO) 291 K/uL (130-400); RED BLOOD CELL COUNT(AUTO) 2.57 MIL/uL (4.50-6.20); RED CELL DISTRIBUTION WIDTH 16.6 % (11.0-15.5); WHITE BLOOD COUNT (AUTO) 15.6 K/uL (4.8-10.8)
[2020-11-26] MEDS: INSULIN HUMULIN R 100 UNIT/ML 3ML SQ SCH ×3 (06:00→18:26)
[2020-11-26] MEDS: MEROPENEM 1 GM VIAL IVP SCH ×3 (06:11→21:09)
[2020-11-26 06:12] LABS: ALBUMIN 1.1 g/dL (3.5-5.0); BILIRUBIN,TOTAL 0.4 mg/dL (0.2-1.0); CREATININE 0.7 mg/dL (0.5-1.5); MAGNESIUM 1.6 mg/dL (1.80-2.40); PHOSPHORUS 3.3 mg/dL (2.5-4.9); POTASSIUM 3.8 mmol/L (3.5-5.1); TOTAL PROTEIN, SERUM 5.8 g/dL (6.0-8.3)
[2020-11-26] MEDS: LEVOTHYROXINE 75 MCG TABLET PO SCH (08:00)
[2020-11-26] MEDS: PANTOPRAZOLE 40 MG/VIAL IVP SCH (08:00)
[2020-11-26] MEDS: ENOXAPARIN SODIUM 40 MG/0.4 ML SYRINGE SQ SCH (08:01)
[2020-11-26] MEDS: BALSAM PERU/CASTOR OIL 60 GM TUBE TP SCH ×3 (08:02→21:10)
[2020-11-26] MEDS ORDERED: QUETIAPINE FUMARATE 25 MG TAB PEG SCH (09:00)
[2020-11-26] MEDS ORDERED: ALTEPLASE 2MG VIAL 2 MG/VIAL VIAL IVCATH SCH (09:30)
[2020-11-26] MEDS: DEXMEDETOMIDINE HCL IV SCH ×2 (11:09→22:00)
[2020-11-26] MEDS: [UNRECOGNIZED DRUG - OTHER] IV SCH ×2 (11:09→22:00)
[2020-11-26] MEDS: ATORVASTATIN 40 MG TABLET PO SCH (21:09)
[2020-11-26] MEDS: QUETIAPINE FUMARATE 25 MG TAB PO SCH (21:09)
[2020-11-27] VITALS (23 sets, daily range): BP systolic 103–157; BP diastolic 42–76
[2020-11-27] MEDS: FUROSEMIDE 20MG VIAL IV SCH (01:51)
[2020-11-27] MEDS: MAGNESIUM 2GM PREMIX 50ML 50 ML IV SCH (05:22)
[2020-11-27] MEDS: INSULIN HUMULIN R 100 UNIT/ML 3ML SQ SCH ×4 (05:23→17:57)
[2020-11-27 05:30] LABS: ABG BASE EXCESS 10.4 mmol/L (-2.0-3.0); ABG OXYGEN SATURATION 93.7 % (95.0-99.0); ABG PCO2 41 mmHg (35-48)
[2020-11-27] MEDS: MEROPENEM 1 GM VIAL IVP SCH (05:47)
[2020-11-27 08:59] LABS: BASOPHILS % (AUTO) 0.4 % (0.0-5.0); EOSINOPHILS % (AUTO) 1.4 % (0.0-8.0); HEMATOCRIT 24.4 % (42-54); LYMPHOCYTES % (AUTO) 14.3 % (21.0-51.0); MEAN CORPUSCULAR HEMOGLOBIN 29.4 pg (27.0-33.0); MEAN CORPUSCULAR HGB CONC 30.7 g/dL (32.0-36.0); MEAN CORPUSCULAR VOLUME 95.7 fL (79-99); MONOCYTES % (AUTO) 3.7 % (3.0-13.0); NEUTROPHILS % (AUTO) 79.6 % (40.0-77.0); PLATELET COUNT (AUTO) 286 K/uL (130-400); RED BLOOD CELL COUNT(AUTO) 2.55 MIL/uL (4.50-6.20); RED CELL DISTRIBUTION WIDTH 16.7 % (11.0-15.5); WHITE BLOOD COUNT (AUTO) 13.2 K/uL (4.8-10.8)
[2020-11-27 09:03] LABS: CREATININE 0.6 mg/dL (0.5-1.5); POTASSIUM 3.6 mmol/L (3.5-5.1)
[2020-11-27 09:04] LABS: INR 1.07 (0.85-1.15); PROTHROMBIN TIME 11.6 SEC (9.6-11.6)
[2020-11-27 09:06] LABS: PARTIAL THROMBOPLASTIN TIME 31.3 SEC (26.3-35.5)
[2020-11-27] MEDS: DEXMEDETOMIDINE HCL IV SCH ×2 (10:18→21:01)
[2020-11-27] MEDS: [UNRECOGNIZED DRUG - OTHER] IV SCH ×2 (10:18→21:01)
[2020-11-27] MEDS: PANTOPRAZOLE 40 MG TAB DR PO SCH (11:11)
[2020-11-27] MEDS: LEVOTHYROXINE 75 MCG TABLET PO SCH (11:11)
[2020-11-27] MEDS: ENOXAPARIN SODIUM 40 MG/0.4 ML SYRINGE SQ SCH (11:12)
[2020-11-27] MEDS: BALSAM PERU/CASTOR OIL 60 GM TUBE TP SCH ×3 (11:12→20:42)
[2020-11-27] MEDS ORDERED: PHARMACY COMMUNICATION MISC SCH (19:15)
[2020-11-28] VITALS (22 sets, daily range): BP systolic 93–151; BP diastolic 37–79
[2020-11-28 04:59] LABS: BASOPHILS % (AUTO) 0.3 % (0.0-5.0); EOSINOPHILS % (AUTO) 0.8 % (0.0-8.0); HEMATOCRIT 25.2 % (42-54); LYMPHOCYTES % (AUTO) 12.6 % (21.0-51.0); MEAN CORPUSCULAR VOLUME 93.7 fL (79-99); MONOCYTES % (AUTO) 3.4 % (3.0-13.0); NEUTROPHILS % (AUTO) 81.9 % (40.0-77.0); PLATELET COUNT (AUTO) 347 K/uL (130-400); RED BLOOD CELL COUNT(AUTO) 2.69 MIL/uL (4.50-6.20); RED CELL DISTRIBUTION WIDTH 16.7 % (11.0-15.5); WHITE BLOOD COUNT (AUTO) 15.7 K/uL (4.8-10.8)
[2020-11-28 05:28] LABS: ABG BASE EXCESS 9.2 mmol/L (-2.0-3.0); ABG HCO3 31.2 mmol/L (21.0-28.0); ABG OXYGEN SATURATION 92.1 % (95.0-99.0); ABG PCO2 34 mmHg (35-48)
[2020-11-28] MEDS: INSULIN HUMULIN R 100 UNIT/ML 3ML SQ SCH ×5 (05:32→23:56)
[2020-11-28 05:44] LABS: ALBUMIN 1.1 g/dL (3.5-5.0); BILIRUBIN,TOTAL 0.5 mg/dL (0.2-1.0); CREATININE 0.7 mg/dL (0.5-1.5); MAGNESIUM 1.8 mg/dL (1.80-2.40); POTASSIUM 3.6 mmol/L (3.5-5.1)
[2020-11-28] MEDS: IPRATROPIUM/ALBUTEROL SULFATE 3 ML SOLUTION IH SCH ×3 (06:30→21:45)
[2020-11-28 06:41] LABS: INR 1.08 (0.85-1.15); PROTHROMBIN TIME 11.7 SEC (9.6-11.6)
[2020-11-28 06:42] LABS: PARTIAL THROMBOPLASTIN TIME 29.7 SEC (26.3-35.5)
[2020-11-28] MEDS ORDERED: LIDOCAINE HCL 1% 20 ML VIAL ONE (07:09)
[2020-11-28] MEDS ORDERED: EPINEPHRINE PF 1MG AMP ONE (07:09)
[2020-11-28] MEDS ORDERED: SUCCINYLCHOLINE 200MG/10ML SYR ONE (07:18)
[2020-11-28] MEDS ORDERED: DEXAMETHASONE SOD PHOSPHATE 10MG/ML 1ML VIAL ONE (07:18)
[2020-11-28] MEDS ORDERED: LIDOCAINE PF 100MG/5ML (2%) SYRINGE 5ML ONE (07:18)
[2020-11-28] MEDS ORDERED: GLYCOPYRROLATE 1 MG/5 ML SYRINGE ONE (07:18)
[2020-11-28] MEDS ORDERED: PROPOFOL 10 MG/ML 20ML VIAL IV ONE (07:18)
[2020-11-28] MEDS ORDERED: NEOSTIGMINE 5MG/5ML SYR IV ONE (07:18)
[2020-11-28] MEDS ORDERED: ROCURONIUM 10MG/1ML SYR 10 MG/ML ML ONE (07:19)
[2020-11-28] MEDS ORDERED: PHENYLEPHRINE HCL 10 MG/ML 1ML VIAL IV ONE (07:47)
[2020-11-28] MEDS ORDERED: D5LR-20 MEQ KCL 1000ML BAG IV SCH (08:45)
[2020-11-28] MEDS ORDERED: DEXTROSE 5%-WATER 1,000 ML IV ONE (09:10)
[2020-11-28] MEDS: PANTOPRAZOLE 40 MG TAB DR PO SCH (09:14)
[2020-11-28] MEDS: LEVOTHYROXINE 75 MCG TABLET PO SCH (09:14)
[2020-11-28] MEDS: ENOXAPARIN SODIUM 40 MG/0.4 ML SYRINGE SQ SCH (09:15)
[2020-11-28] MEDS: BALSAM PERU/CASTOR OIL 60 GM TUBE TP SCH ×3 (09:15→19:52)
[2020-11-28] MEDS ORDERED: PHARMACY COMMUNICATION MISC SCH ×3 (10:15→20:30)
[2020-11-28] MEDS: POTASSIUM CHLORIDE 20MEQ/10ML 40 MEQ in DEXTROSE 5%-LACTATED RINGERS 1,000 ML IV SCH ×2 (10:51→23:56)
[2020-11-28] MEDS: CLONAZEPAM 1MG TAB PO SCH ×2 (10:51→20:07)
[2020-11-28] MEDS: DEXMEDETOMIDINE HCL IV SCH (20:01)
[2020-11-28] MEDS: [UNRECOGNIZED DRUG - OTHER] IV SCH (20:01)
[2020-11-28] MEDS: MEROPENEM 1 GM VIAL IVP SCH (20:07)
[2020-11-29] VITALS (19 sets, daily range): BP systolic 92–138; BP diastolic 43–67
[2020-11-29 04:09] LABS: CREATININE 0.7 mg/dL (0.5-1.5); MAGNESIUM 1.6 mg/dL (1.80-2.40); PHOSPHORUS 3.2 mg/dL (2.5-4.9); POTASSIUM 3.5 mmol/L (3.5-5.1)
[2020-11-29 04:14] LABS: BASOPHILS % (AUTO) 0.2 % (0.0-5.0); EOSINOPHILS % (AUTO) 0.2 % (0.0-8.0); HEMATOCRIT 24.2 % (42-54); LYMPHOCYTES % (AUTO) 6.5 % (21.0-51.0); MEAN CORPUSCULAR HEMOGLOBIN 29.6 pg (27.0-33.0); MEAN CORPUSCULAR VOLUME 95.7 fL (79-99); MONOCYTES % (AUTO) 2.5 % (3.0-13.0); NEUTROPHILS % (AUTO) 89.3 % (40.0-77.0); PLATELET COUNT (AUTO) 332 K/uL (130-400); RED BLOOD CELL COUNT(AUTO) 2.53 MIL/uL (4.50-6.20); RED CELL DISTRIBUTION WIDTH 16.8 % (11.0-15.5); WHITE BLOOD COUNT (AUTO) 20.2 K/uL (4.8-10.8)
[2020-11-29 04:25] LABS: ALBUMIN 1.1 g/dL (3.5-5.0); BILIRUBIN,DIRECT 0.2 mg/dL (0.0-0.3); BILIRUBIN,TOTAL 0.4 mg/dL (0.2-1.0); TOTAL PROTEIN, SERUM 5.8 g/dL (6.0-8.3)
[2020-11-29] MEDS: MEROPENEM 1 GM VIAL IVP SCH ×3 (04:29→21:16)
[2020-11-29] MEDS: [UNRECOGNIZED DRUG - OTHER] IV SCH ×3 (04:42→21:44)
[2020-11-29] MEDS: DEXMEDETOMIDINE HCL IV SCH ×3 (04:42→21:44)
[2020-11-29] MEDS: MAGNESIUM 2GM PREMIX 50ML 50 ML IV SCH (05:21)
[2020-11-29] MEDS: INSULIN HUMULIN R 100 UNIT/ML 3ML SQ SCH ×3 (05:35→18:00)
[2020-11-29] MEDS: LEVOTHYROXINE 75 MCG TABLET PO SCH (07:50)
[2020-11-29] MEDS: CLONAZEPAM 1MG TAB PO SCH ×2 (07:51→21:15)
[2020-11-29] MEDS: ENOXAPARIN SODIUM 40 MG/0.4 ML SYRINGE SQ SCH (07:52)
[2020-11-29] MEDS: BALSAM PERU/CASTOR OIL 60 GM TUBE TP SCH ×3 (09:00→21:42)
[2020-11-29] MEDS: MAGNESIUM OXIDE 400 MG TABLET PO SCH (11:45)
[2020-11-29] MEDS: [UNRECOGNIZED DRUG - REMARK] MISC SCH ×2 (17:00→18:00)
[2020-11-29] MEDS ORDERED: VANCOMYCIN PROTOCOL PER PHARMACY IV SCH (17:15)
[2020-11-29] MEDS ORDERED: VANCOMYCIN 1G 1.25 GM in 0.9% NACL 250ML 250 ML IV ONE (18:00)
[2020-11-29] MEDS ORDERED: COMPOUND IV REFRIGERATED 1 EACH IVSOLN MISC PRN (18:45)
[2020-11-30] VITALS (16 sets, daily range): BP systolic 107–158; BP diastolic 46–102
[2020-11-30] MEDS: MAGNESIUM OXIDE 400 MG TABLET PO SCH (00:12)
[2020-11-30] MEDS: IPRATROPIUM/ALBUTEROL SULFATE 3 ML SOLUTION IH SCH ×3 (00:41→22:00)
[2020-11-30 03:37] LABS: BASOPHILS % (AUTO) 0.3 % (0.0-5.0); EOSINOPHILS % (AUTO) 0.1 % (0.0-8.0); HEMATOCRIT 23.5 % (42-54); LYMPHOCYTES % (AUTO) 7.6 % (21.0-51.0); MEAN CORPUSCULAR HEMOGLOBIN 29.4 pg (27.0-33.0); MEAN CORPUSCULAR HGB CONC 30.6 g/dL (32.0-36.0); MEAN CORPUSCULAR VOLUME 95.9 fL (79-99); MONOCYTES % (AUTO) 2.3 % (3.0-13.0); NEUTROPHILS % (AUTO) 87.3 % (40.0-77.0); PLATELET COUNT (AUTO) 330 K/uL (130-400); RED BLOOD CELL COUNT(AUTO) 2.45 MIL/uL (4.50-6.20); RED CELL DISTRIBUTION WIDTH 16.8 % (11.0-15.5); WHITE BLOOD COUNT (AUTO) 23.3 K/uL (4.8-10.8)
[2020-11-30 03:56] LABS: ALBUMIN 0.9 g/dL (3.5-5.0); BILIRUBIN,TOTAL 0.5 mg/dL (0.2-1.0); CREATININE 0.9 mg/dL (0.5-1.5); MAGNESIUM 2.2 mg/dL (1.80-2.40); PHOSPHORUS 3.5 mg/dL (2.5-4.9); POTASSIUM 3.2 mmol/L (3.5-5.1); TOTAL PROTEIN, SERUM 5.5 g/dL (6.0-8.3)
[2020-11-30 04:23] LABS: CRP QUANTITATIVE 245.3 mg/L (0.00-9.0)
[2020-11-30] MEDS: MEROPENEM 1 GM VIAL IVP SCH ×2 (05:21→13:00)
[2020-11-30] MEDS: VANCOMYCIN 750MG + NS 250 ML IV SCH ×4 (06:21→18:41)
[2020-11-30] MEDS: INSULIN HUMULIN R 100 UNIT/ML 3ML SQ SCH ×4 (07:21→18:00)
[2020-11-30] MEDS ORDERED: PHARMACY COMMUNICATION MISC SCH ×2 (10:15→20:45)
[2020-11-30] MEDS: LEVOTHYROXINE 75 MCG TABLET PO SCH (10:35)
[2020-11-30] MEDS: LANSOPRAZOLE 15 MG SOLU TAB PEG SCH (10:35)
[2020-11-30] MEDS: BALSAM PERU/CASTOR OIL 60 GM TUBE TP SCH ×3 (10:36→22:10)
[2020-11-30] MEDS: ENOXAPARIN SODIUM 40 MG/0.4 ML SYRINGE SQ SCH (10:36)
[2020-11-30] MEDS: MEROPENEM 500 MG VIAL IVP SCH ×2 (11:45→22:09)
[2020-11-30 15:17] LABS: INR 1.09 (0.85-1.15); PROTHROMBIN TIME 11.8 SEC (9.6-11.6)
[2020-11-30] MEDS ORDERED: DEXMEDETOMIDINE HCL 400 MCG in 0.9%NACL 100ML 100 ML IV SCH (21:00)
[2020-12-01] VITALS (26 sets, daily range): BP systolic 86–142; BP diastolic 51–84
[2020-12-01 04:06] LABS: BASOPHILS % (AUTO) 0.3 % (0.0-5.0); EOSINOPHILS % (AUTO) 0.1 % (0.0-8.0); HEMATOCRIT 23.6 % (42-54); LYMPHOCYTES % (AUTO) 7.2 % (21.0-51.0); MEAN CORPUSCULAR HEMOGLOBIN 29.3 pg (27.0-33.0); MEAN CORPUSCULAR HGB CONC 30.9 g/dL (32.0-36.0); MEAN CORPUSCULAR VOLUME 94.8 fL (79-99); MONOCYTES % (AUTO) 3.3 % (3.0-13.0); NEUTROPHILS % (AUTO) 87.4 % (40.0-77.0); PLATELET COUNT (AUTO) 359 K/uL (130-400); RED BLOOD CELL COUNT(AUTO) 2.49 MIL/uL (4.50-6.20); RED CELL DISTRIBUTION WIDTH 16.6 % (11.0-15.5); WHITE BLOOD COUNT (AUTO) 21.4 K/uL (4.8-10.8)
[2020-12-01 04:26] LABS: BILIRUBIN,TOTAL 0.6 mg/dL (0.2-1.0); CREATININE 0.9 mg/dL (0.5-1.5); MAGNESIUM 2.1 mg/dL (1.80-2.40); PHOSPHORUS 3.6 mg/dL (2.5-4.9); TOTAL PROTEIN, SERUM 5.5 g/dL (6.0-8.3)
[2020-12-01 04:31] LABS: POTASSIUM 2.9 mmol/L (3.5-5.1)
[2020-12-01] MEDS: MEROPENEM 500 MG VIAL IVP SCH (05:17)
[2020-12-01] MEDS: POTASSIUM CHLORIDE 20MEQ/100ML 100 ML IV PRN ×2 (05:18→08:04)
[2020-12-01] MEDS: INSULIN HUMULIN R 100 UNIT/ML 3ML SQ SCH ×4 (06:00→18:00)
[2020-12-01] MEDS: VANCOMYCIN 750MG + NS 250 ML IV SCH ×2 (06:33)
[2020-12-01] MEDS ORDERED: PHARMACY COMMUNICATION MISC SCH (07:30)
[2020-12-01] MEDS ORDERED: DEXMEDETOMIDINE HCL 400 MCG in 0.9%NACL 100ML 100 ML IV PRN (07:45)
[2020-12-01] MEDS ORDERED: IPRATROPIUM/ALBUTEROL SULFATE 3 ML SOLUTION IH PRN (07:45)
[2020-12-01] MEDS: LEVOTHYROXINE 75 MCG TABLET PO SCH (08:02)
[2020-12-01] MEDS: LANSOPRAZOLE 15 MG SOLU TAB PEG SCH (08:02)
[2020-12-01] MEDS: BALSAM PERU/CASTOR OIL 60 GM TUBE TP SCH ×3 (08:03→21:17)
[2020-12-01] MEDS: ENOXAPARIN SODIUM 40 MG/0.4 ML SYRINGE SQ SCH (08:03)
[2020-12-01] MEDS ORDERED: COMPOUND PO MISCELLANEOUS 1 EACH MISC MISC PRN (08:45)
[2020-12-01] MEDS: VANCOMYCIN 1G 2 GM, 0.9%NACL 20 ML VIAL 80 ML PEG SCH ×8 (10:30→21:19)
[2020-12-01] MEDS: FENTANYL CITRATE PF 50 MCG/1 ML 2ML VIAL IVP PRN (20:50)
[2020-12-02] VITALS (33 sets, daily range): BP systolic 77–137; BP diastolic 26–76
[2020-12-02 03:32] LABS: BASOPHILS % (AUTO) 0.4 % (0.0-5.0); EOSINOPHILS % (AUTO) 0.5 % (0.0-8.0); HEMATOCRIT 25.2 % (42-54); LYMPHOCYTES % (AUTO) 13.8 % (21.0-51.0); MEAN CORPUSCULAR HEMOGLOBIN 29.2 pg (27.0-33.0); MEAN CORPUSCULAR HGB CONC 30.6 g/dL (32.0-36.0); MEAN CORPUSCULAR VOLUME 95.5 fL (79-99); MONOCYTES % (AUTO) 3.5 % (3.0-13.0); NEUTROPHILS % (AUTO) 80.4 % (40.0-77.0); PLATELET COUNT (AUTO) 354 K/uL (130-400); RED BLOOD CELL COUNT(AUTO) 2.64 MIL/uL (4.50-6.20); RED CELL DISTRIBUTION WIDTH 16.8 % (11.0-15.5); WHITE BLOOD COUNT (AUTO) 16.9 K/uL (4.8-10.8)
[2020-12-02 03:46] LABS: CREATININE 0.9 mg/dL (0.5-1.5); MAGNESIUM 1.9 mg/dL (1.80-2.40); PHOSPHORUS 3.5 mg/dL (2.5-4.9); POTASSIUM 3.8 mmol/L (3.5-5.1)
[2020-12-02] MEDS: FENTANYL CITRATE PF 50 MCG/1 ML 2ML VIAL IVP PRN (05:19)
[2020-12-02] MEDS: INSULIN HUMULIN R 100 UNIT/ML 3ML SQ SCH ×4 (06:00→17:58)
[2020-12-02] MEDS: LANSOPRAZOLE 15 MG SOLU TAB PEG SCH (09:00)
[2020-12-02] MEDS: BALSAM PERU/CASTOR OIL 60 GM TUBE TP SCH ×3 (10:15→21:48)
[2020-12-02] MEDS: LEVOTHYROXINE 75 MCG TABLET PO SCH (10:15)
[2020-12-02] MEDS: ENOXAPARIN SODIUM 40 MG/0.4 ML SYRINGE SQ SCH (10:15)
[2020-12-02] MEDS: VANCOMYCIN 1G 2 GM, 0.9%NACL 20 ML VIAL 80 ML PEG SCH ×8 (10:15→21:48)
[2020-12-02] MEDS: RISPERIDONE 1 MG TABLET PO SCH ×2 (14:45→21:00)
[2020-12-02] MEDS ORDERED: PHARMACY COMMUNICATION MISC SCH (19:45)
[2020-12-03] VITALS (60 sets, daily range): BP systolic 89–215; BP diastolic 41–136
[2020-12-03 05:05] LABS: ABG BASE EXCESS 0.3 mmol/L (-2.0-3.0); ABG PCO2 28 mmHg (35-48)
[2020-12-03 05:13] LABS: BASOPHILS % (AUTO) 0.3 % (0.0-5.0); EOSINOPHILS % (AUTO) 0.2 % (0.0-8.0); HEMATOCRIT 23.3 % (42-54); LYMPHOCYTES % (AUTO) 12.5 % (21.0-51.0); MEAN CORPUSCULAR HGB CONC 30.9 g/dL (32.0-36.0); MONOCYTES % (AUTO) 4.5 % (3.0-13.0); NEUTROPHILS % (AUTO) 80.3 % (40.0-77.0); PLATELET COUNT (AUTO) 357 K/uL (130-400); RED BLOOD CELL COUNT(AUTO) 2.48 MIL/uL (4.50-6.20); RED CELL DISTRIBUTION WIDTH 16.4 % (11.0-15.5); WHITE BLOOD COUNT (AUTO) 12.1 K/uL (4.8-10.8)
[2020-12-03 05:26] LABS: INR 1.11 (0.85-1.15)
[2020-12-03 05:28] LABS: PARTIAL THROMBOPLASTIN TIME 28.6 SEC (26.3-35.5)
[2020-12-03 05:54] LABS: CREATININE 0.9 mg/dL (0.5-1.5); MAGNESIUM 1.9 mg/dL (1.80-2.40); POTASSIUM 3.6 mmol/L (3.5-5.1)
[2020-12-03] MEDS: INSULIN HUMULIN R 100 UNIT/ML 3ML SQ SCH ×5 (06:00→23:14)
[2020-12-03] MEDS ORDERED: MAGNESIUM 2GM PREMIX 50ML 50 ML IV SCH (07:30)
[2020-12-03] MEDS ORDERED: POTASSIUM CHLORIDE 20 MEQ/100 ML BAG IV SCH (07:30)
[2020-12-03] MEDS ORDERED: POTASSIUM CHLORIDE 20MEQ/100ML 100 ML IV SCH (08:00)
[2020-12-03] MEDS: ENOXAPARIN SODIUM 40 MG/0.4 ML SYRINGE SQ SCH (09:00)
[2020-12-03] MEDS: METOPROLOL TARTRATE 25 MG TAB PO SCH ×2 (09:00→22:14)
[2020-12-03] MEDS: VANCOMYCIN 1G 2 GM, 0.9%NACL 20 ML VIAL 80 ML PEG SCH ×8 (09:00→23:04)
[2020-12-03] MEDS: LEVOTHYROXINE 75 MCG TABLET PO SCH (09:00)
[2020-12-03] MEDS: RISPERIDONE 1 MG TABLET PO SCH ×2 (09:00→20:53)
[2020-12-03] MEDS: BALSAM PERU/CASTOR OIL 60 GM TUBE TP SCH ×3 (09:56→20:54)
[2020-12-03] MEDS ORDERED: KETAMINE 50MG/ML SYRINGE 50 MG/ML DISP.SYRIN IV ONE (13:58)
[2020-12-03] MEDS ORDERED: ROCURONIUM 10MG/1ML SYR 10 MG/ML ML ONE (13:59)
[2020-12-03] MEDS ORDERED: PROPOFOL 10 MG/ML 20ML VIAL IV ONE (14:04)
[2020-12-03] MEDS: KCL 20 MEQ ERTAB PO SCH (17:20)
[2020-12-03] MEDS: MAGNESIUM OXIDE 400 MG TABLET PO SCH (20:54)
[2020-12-04] VITALS (69 sets, daily range): BP systolic 83–122; BP diastolic 34–81
[2020-12-04] MEDS: INSULIN HUMULIN R 100 UNIT/ML 3ML SQ SCH ×3 (05:58→17:52)
[2020-12-04] MEDS: METOPROLOL TARTRATE 25 MG TAB PO SCH ×2 (09:05→21:00)
[2020-12-04] MEDS: KCL 20 MEQ ERTAB PO SCH (09:05)
[2020-12-04] MEDS: ENOXAPARIN SODIUM 40 MG/0.4 ML SYRINGE SQ SCH (09:05)
[2020-12-04] MEDS: RISPERIDONE 1 MG TABLET PO SCH ×2 (09:05→21:12)
[2020-12-04] MEDS: VANCOMYCIN 1G 2 GM, 0.9%NACL 20 ML VIAL 80 ML PEG SCH ×8 (09:07→20:50)
[2020-12-04] MEDS: LEVOTHYROXINE 75 MCG TABLET PO SCH (09:07)
[2020-12-04] MEDS: BALSAM PERU/CASTOR OIL 60 GM TUBE TP SCH ×3 (09:08→21:12)
[2020-12-04 09:18] LABS: HEMATOCRIT 23.4 % (42-54); MEAN CORPUSCULAR HEMOGLOBIN 29.2 pg (27.0-33.0); MEAN CORPUSCULAR HGB CONC 30.3 g/dL (32.0-36.0); MEAN CORPUSCULAR VOLUME 96.3 fL (79-99); PLATELET COUNT (AUTO) 315 K/uL (130-400); RED BLOOD CELL COUNT(AUTO) 2.43 MIL/uL (4.50-6.20); RED CELL DISTRIBUTION WIDTH 16.7 % (11.0-15.5); WHITE BLOOD COUNT (AUTO) 7.4 K/uL (4.8-10.8)
[2020-12-04 09:28] LABS: CREATININE 0.8 mg/dL (0.5-1.5); POTASSIUM 3.7 mmol/L (3.5-5.1)
[2020-12-04] MEDS: MAGNESIUM OXIDE 400 MG TABLET PO SCH (09:59)
[2020-12-04 11:00] LABS: BAND NEUTROPHILS % (MANUAL) 1 % (0-2); EOSINOPHILS % (MANUAL) 1 % (1-6); LYMPHOCYTES % (MANUAL) 8 % (22-44); MAN.DIFF COMMENT-IMPRESSION MANUAL DIFFERENTIAL; MONOCYTES % (MANUAL) 4 % (2-9); SEGMENTED NEUTROPHILS % 86 % (40-70)
[2020-12-04 11:04] LABS: PLATELET MORPHOLOGY COMMENT ADEQUATE
[2020-12-04] MEDS ORDERED: ACETAMINOPHEN 325 MG TAB ONE (23:28)
[2020-12-05] VITALS (88 sets, daily range): BP systolic 79–123; BP diastolic 33–73
[2020-12-05] MEDS: INSULIN HUMULIN R 100 UNIT/ML 3ML SQ SCH ×4 (05:58→18:00)
[2020-12-05 06:35] LABS: BASOPHILS % (AUTO) 0.6 % (0.0-5.0); EOSINOPHILS % (AUTO) 1.3 % (0.0-8.0); HEMATOCRIT 22.3 % (42-54); LYMPHOCYTES % (AUTO) 25.1 % (21.0-51.0); MEAN CORPUSCULAR HEMOGLOBIN 28.6 pg (27.0-33.0); MEAN CORPUSCULAR VOLUME 95.3 fL (79-99); MONOCYTES % (AUTO) 7.5 % (3.0-13.0); NEUTROPHILS % (AUTO) 61.6 % (40.0-77.0); PLATELET COUNT (AUTO) 275 K/uL (130-400); RED BLOOD CELL COUNT(AUTO) 2.34 MIL/uL (4.50-6.20); WHITE BLOOD COUNT (AUTO) 6.9 K/uL (4.8-10.8)
[2020-12-05 06:52] LABS: ALBUMIN 1.1 g/dL (3.5-5.0); BILIRUBIN,TOTAL 0.4 mg/dL (0.2-1.0); CREATININE 0.8 mg/dL (0.5-1.5); MAGNESIUM 2.7 mg/dL (1.80-2.40); POTASSIUM 3.5 mmol/L (3.5-5.1); TOTAL PROTEIN, SERUM 5.5 g/dL (6.0-8.3)
[2020-12-05 06:54] LABS: % IRON SATURATION 26.5 % (30-44)
[2020-12-05] MEDS: MAGNESIUM OXIDE 400 MG TABLET PO SCH (08:48)
[2020-12-05] MEDS: RISPERIDONE 1 MG TABLET PO SCH ×2 (10:00→20:29)
[2020-12-05] MEDS: LEVOTHYROXINE 75 MCG TABLET PO SCH (10:00)
[2020-12-05] MEDS: KCL 20 MEQ ERTAB PO SCH (10:01)
[2020-12-05] MEDS: METOPROLOL TARTRATE 25 MG TAB PO SCH ×2 (10:01→20:29)
[2020-12-05] MEDS: BALSAM PERU/CASTOR OIL 60 GM TUBE TP SCH ×3 (10:02→21:19)
[2020-12-05] MEDS: VANCOMYCIN 1G 2 GM, 0.9%NACL 20 ML VIAL 80 ML PEG SCH ×8 (11:13→20:31)
[2020-12-05 18:12] LABS: HEMATOCRIT 26.8 % (42-54)
[2020-12-06] VITALS (83 sets, daily range): BP systolic 70–146; BP diastolic 41–98
[2020-12-06 04:58] LABS: BASOPHILS % (AUTO) 0.5 % (0.0-5.0); EOSINOPHILS % (AUTO) 0.7 % (0.0-8.0); HEMATOCRIT 29.4 % (42-54); LYMPHOCYTES % (AUTO) 19.2 % (21.0-51.0); MEAN CORPUSCULAR HEMOGLOBIN 28.3 pg (27.0-33.0); MEAN CORPUSCULAR VOLUME 91.3 fL (79-99); MONOCYTES % (AUTO) 5.8 % (3.0-13.0); NEUTROPHILS % (AUTO) 70.3 % (40.0-77.0); PLATELET COUNT (AUTO) 271 K/uL (130-400); RED BLOOD CELL COUNT(AUTO) 3.22 MIL/uL (4.50-6.20); RED CELL DISTRIBUTION WIDTH 19.4 % (11.0-15.5); WHITE BLOOD COUNT (AUTO) 9.5 K/uL (4.8-10.8)
[2020-12-06 05:14] LABS: BILIRUBIN,TOTAL 0.5 mg/dL (0.2-1.0); CREATININE 0.7 mg/dL (0.5-1.5); POTASSIUM 3.9 mmol/L (3.5-5.1); TOTAL PROTEIN, SERUM 5.6 g/dL (6.0-8.3)
[2020-12-06] MEDS: INSULIN HUMULIN R 100 UNIT/ML 3ML SQ SCH ×4 (06:00→17:24)
[2020-12-06] MEDS: RISPERIDONE 1 MG TABLET PO SCH ×2 (08:26→20:38)
[2020-12-06] MEDS: MAGNESIUM OXIDE 400 MG TABLET PO SCH (08:26)
[2020-12-06] MEDS: LEVOTHYROXINE 75 MCG TABLET PO SCH (08:26)
[2020-12-06] MEDS: VANCOMYCIN 1G 2 GM, 0.9%NACL 20 ML VIAL 80 ML PEG SCH ×8 (08:27→20:41)
[2020-12-06] MEDS: METOPROLOL TARTRATE 25 MG TAB PO SCH ×2 (08:27→20:38)
[2020-12-06] MEDS: KCL 20 MEQ ERTAB PO SCH (08:27)
[2020-12-06] MEDS: BALSAM PERU/CASTOR OIL 60 GM TUBE TP SCH ×3 (08:28→20:39)
[2020-12-06] MEDS: LEVOFLOXACIN 500 MG/D5W 100 ML 100 ML IV SCH (17:26)
[2020-12-06] MEDS: HONEY 1 APPL/ML TUBE TP SCH ×2 (17:26→20:39)
[2020-12-07] VITALS (57 sets, daily range): BP systolic 79–122; BP diastolic 33–68
[2020-12-07] MEDS: INSULIN HUMULIN R 100 UNIT/ML 3ML SQ SCH ×4 (06:00→17:33)
[2020-12-07 07:16] LABS: BASOPHILS % (AUTO) 0.5 % (0.0-5.0); EOSINOPHILS % (AUTO) 0.6 % (0.0-8.0); HEMATOCRIT 30.7 % (42-54); MEAN CORPUSCULAR HEMOGLOBIN 27.7 pg (27.0-33.0); MEAN CORPUSCULAR VOLUME 92.5 fL (79-99); MONOCYTES % (AUTO) 5.8 % (3.0-13.0); NEUTROPHILS % (AUTO) 75.6 % (40.0-77.0); PLATELET COUNT (AUTO) 245 K/uL (130-400); RED BLOOD CELL COUNT(AUTO) 3.32 MIL/uL (4.50-6.20); RED CELL DISTRIBUTION WIDTH 18.9 % (11.0-15.5); WHITE BLOOD COUNT (AUTO) 12.5 K/uL (4.8-10.8)
[2020-12-07 07:26] LABS: CREATININE 0.8 mg/dL (0.5-1.5); MAGNESIUM 1.9 mg/dL (1.80-2.40); PHOSPHORUS 3.4 mg/dL (2.5-4.9); POTASSIUM 3.7 mmol/L (3.5-5.1)
[2020-12-07 07:35] LABS: ABG BASE EXCESS -0.1 mmol/L (-2.0-3.0); ABG HCO3 23.1 mmol/L (21.0-28.0); ABG OXYGEN SATURATION 97.7 % (95.0-99.0); ABG PCO2 34 mmHg (35-48)
[2020-12-07 07:45] LABS: CRP QUANTITATIVE 178.5 mg/L (0.00-9.0)
[2020-12-07] MEDS: KCL 20 MEQ ERTAB PO SCH (07:57)
[2020-12-07] MEDS: LEVOTHYROXINE 75 MCG TABLET PO SCH (07:57)
[2020-12-07] MEDS: MAGNESIUM OXIDE 400 MG TABLET PO SCH (07:58)
[2020-12-07] MEDS: RISPERIDONE 1 MG TABLET PO SCH ×2 (07:58→23:00)
[2020-12-07] MEDS: METOPROLOL TARTRATE 25 MG TAB PO SCH (07:58)
[2020-12-07] MEDS: HONEY 1 APPL/ML TUBE TP SCH ×4 (07:59→20:52)
[2020-12-07] MEDS: BALSAM PERU/CASTOR OIL 60 GM TUBE TP SCH ×3 (07:59→20:52)
[2020-12-07] MEDS: VANCOMYCIN 1G 2 GM, 0.9%NACL 20 ML VIAL 80 ML PEG SCH ×8 (08:01→20:51)
[2020-12-07] MEDS: MIDODRINE HCL 5 MG TABLET PEG SCH ×2 (13:24→20:50)
[2020-12-07] MEDS: LEVOFLOXACIN 500 MG/D5W 100 ML 100 ML IV SCH (13:25)
[2020-12-07] MEDS: LINEZOLID 600 MG/ISO-OSM 300 ML IV SCH (14:00)
[2020-12-08] VITALS (23 sets, daily range): BP systolic 84–131; BP diastolic 45–90
[2020-12-08] MEDS: LINEZOLID 600 MG/ISO-OSM 300 ML IV SCH ×2 (01:34→13:23)
[2020-12-08 05:09] LABS: ABG BASE EXCESS 0.9 mmol/L (-2.0-3.0); ABG HCO3 21.4 mmol/L (21.0-28.0); ABG OXYGEN SATURATION 97.2 % (95.0-99.0); ABG PCO2 25 mmHg (35-48)
[2020-12-08 05:45] LABS: ASPARTATE AMINOTRANSFERASE 24 U/L (10-37); BILIRUBIN,TOTAL 0.4 mg/dL (0.2-1.0); CARBON DIOXIDE 21 mmol/L (21-32); CHLORIDE 106 mmol/L (101-111); CREATININE 0.7 mg/dL (0.5-1.5); GLOMERULAR FILTR. RATE CALC 118 mL/min (>60); GLUCOSE,RANDOM 160 mg/dL (70-105); POTASSIUM 3.7 mmol/L (3.5-5.1); SODIUM SERUM 134 mmol/L (136-145); TOTAL PROTEIN, SERUM 5.5 g/dL (6.0-8.3); UREA NITROGEN, BLOOD 30 mg/dL (7-18)
[2020-12-08 05:49] LABS: ALANINE AMINOTRANSFERASE < 6 U/L (12-78)
[2020-12-08] MEDS: INSULIN HUMULIN R 100 UNIT/ML 3ML SQ SCH ×4 (06:00→18:13)
[2020-12-08 06:06] LABS: HEMATOCRIT 28.3 % (42-54); MEAN CORPUSCULAR HEMOGLOBIN 28.1 pg (27.0-33.0); MEAN CORPUSCULAR HGB CONC 30.4 g/dL (32.0-36.0); MEAN CORPUSCULAR VOLUME 92.5 fL (79-99); PLATELET COUNT (AUTO) 208 K/uL (130-400); RED BLOOD CELL COUNT(AUTO) 3.06 MIL/uL (4.50-6.20); RED CELL DISTRIBUTION WIDTH 18.6 % (11.0-15.5)
[2020-12-08 06:51] LABS: BASOPHILS % (MANUAL) 1 % (0-2); LYMPHOCYTES % (MANUAL) 1 % (22-44); MAN.DIFF COMMENT-IMPRESSION MANUAL DIFFERENTIAL; MONOCYTES % (MANUAL) 7 % (2-9); SEGMENTED NEUTROPHILS % 91 % (40-70)
[2020-12-08 06:52] LABS: PLATELET MORPHOLOGY COMMENT ADEQUATE
[2020-12-08] MEDS: LEVOTHYROXINE 75 MCG TABLET PO SCH (08:20)
[2020-12-08] MEDS: KCL 20 MEQ ERTAB PO SCH (08:20)
[2020-12-08] MEDS: MIDODRINE HCL 5 MG TABLET PEG SCH ×3 (08:20→20:47)
[2020-12-08] MEDS: MAGNESIUM OXIDE 400 MG TABLET PO SCH (08:20)
[2020-12-08] MEDS: RISPERIDONE 1 MG TABLET PO SCH ×2 (08:20→20:47)
[2020-12-08] MEDS: HONEY 1 APPL/ML TUBE TP SCH ×4 (08:21→20:48)
[2020-12-08] MEDS: VANCOMYCIN 1G 2 GM, 0.9%NACL 20 ML VIAL 80 ML PEG SCH ×8 (08:21→20:57)
[2020-12-08] MEDS: BALSAM PERU/CASTOR OIL 60 GM TUBE TP SCH ×3 (08:21→20:49)
[2020-12-08] MEDS: LEVOFLOXACIN 500 MG/D5W 100 ML 100 ML IV SCH (13:25)
[2020-12-08] MEDS: IPRATROPIUM/ALBUTEROL SULFATE 3 ML SOLUTION IH SCH ×3 (14:49→23:46)
[2020-12-09] VITALS (24 sets, daily range): BP systolic 101–158; BP diastolic 41–88
[2020-12-09] MEDS: LINEZOLID 600 MG/ISO-OSM 300 ML IV SCH ×2 (00:55→13:28)
[2020-12-09 05:03] LABS: ABG BASE EXCESS 0.1 mmol/L (-2.0-3.0); ABG HCO3 24.6 mmol/L (21.0-28.0); ABG OXYGEN SATURATION 94.9 % (95.0-99.0); ABG PCO2 40 mmHg (35-48)
[2020-12-09] MEDS: INSULIN HUMULIN R 100 UNIT/ML 3ML SQ SCH ×4 (06:00→17:22)
[2020-12-09 06:20] LABS: ALBUMIN 1.1 g/dL (3.5-5.0); BILIRUBIN,TOTAL 0.3 mg/dL (0.2-1.0); CREATININE 0.6 mg/dL (0.5-1.5); MAGNESIUM 1.6 mg/dL (1.80-2.40); PHOSPHORUS 3.4 mg/dL (2.5-4.9); POTASSIUM 3.9 mmol/L (3.5-5.1); TOTAL PROTEIN, SERUM 5.4 g/dL (6.0-8.3)
[2020-12-09 07:49] LABS: BASOPHILS % (AUTO) 0.5 % (0.0-5.0); HEMATOCRIT 28.8 % (42-54); LYMPHOCYTES % (AUTO) 8.3 % (21.0-51.0); MEAN CORPUSCULAR HEMOGLOBIN 28.4 pg (27.0-33.0); MEAN CORPUSCULAR HGB CONC 30.9 g/dL (32.0-36.0); MONOCYTES % (AUTO) 4.9 % (3.0-13.0); NEUTROPHILS % (AUTO) 82.3 % (40.0-77.0); PLATELET COUNT (AUTO) 235 K/uL (130-400); RED BLOOD CELL COUNT(AUTO) 3.13 MIL/uL (4.50-6.20); RED CELL DISTRIBUTION WIDTH 18.3 % (11.0-15.5); WHITE BLOOD COUNT (AUTO) 13.2 K/uL (4.8-10.8)
[2020-12-09] MEDS: LEVOTHYROXINE 75 MCG TABLET PO SCH (08:33)
[2020-12-09] MEDS: RISPERIDONE 1 MG TABLET PO SCH ×2 (08:33→20:38)
[2020-12-09] MEDS: MIDODRINE HCL 5 MG TABLET PEG SCH ×3 (08:33→20:39)
[2020-12-09] MEDS: KCL 20 MEQ ERTAB PO SCH (08:33)
[2020-12-09] MEDS: MAGNESIUM OXIDE 400 MG TABLET PO SCH (08:33)
[2020-12-09] MEDS: HONEY 1 APPL/ML TUBE TP SCH ×4 (08:35→20:44)
[2020-12-09] MEDS: BALSAM PERU/CASTOR OIL 60 GM TUBE TP SCH ×3 (08:35→20:53)
[2020-12-09] MEDS: VANCOMYCIN 1G 2 GM, 0.9%NACL 20 ML VIAL 80 ML PEG SCH ×8 (08:35→20:55)
[2020-12-09] MEDS ORDERED: FUROSEMIDE 40MG VIAL IVP SCH (08:45)
[2020-12-09] MEDS: LEVOFLOXACIN 500 MG/D5W 100 ML 100 ML IV SCH (13:27)
[2020-12-09] MEDS ORDERED: MAGNESIUM 2GM PREMIX 50ML 50 ML IV SCH (13:30)
[2020-12-09] MEDS: IPRATROPIUM/ALBUTEROL SULFATE 3 ML SOLUTION IH SCH ×2 (14:24→19:06)
[2020-12-09] MEDS: MAGNESIUM 2GM PREMIX 50ML 50 ML IV SCH (14:37)
[2020-12-09] MEDS: FUROSEMIDE 20MG VIAL IVP SCH (20:58)
[2020-12-10] VITALS (27 sets, daily range): BP systolic 91–156; BP diastolic 56–90
[2020-12-10] MEDS: IPRATROPIUM/ALBUTEROL SULFATE 3 ML SOLUTION IH SCH ×4 (00:08→18:48)
[2020-12-10] MEDS: LINEZOLID 600 MG/ISO-OSM 300 ML IV SCH ×2 (01:58→13:18)
[2020-12-10 04:35] LABS: HEMATOCRIT 27.4 % (42-54); MEAN CORPUSCULAR HEMOGLOBIN 28.5 pg (27.0-33.0); MEAN CORPUSCULAR HGB CONC 31.8 g/dL (32.0-36.0); MEAN CORPUSCULAR VOLUME 89.8 fL (79-99); RED BLOOD CELL COUNT(AUTO) 3.05 MIL/uL (4.50-6.20); RED CELL DISTRIBUTION WIDTH 18.2 % (11.0-15.5); WHITE BLOOD COUNT (AUTO) 13.4 K/uL (4.8-10.8)
[2020-12-10 04:49] LABS: CREATININE 0.7 mg/dL (0.5-1.5); MAGNESIUM 1.8 mg/dL (1.80-2.40); PHOSPHORUS 3.1 mg/dL (2.5-4.9); POTASSIUM 3.9 mmol/L (3.5-5.1)
[2020-12-10] MEDS: INSULIN HUMULIN R 100 UNIT/ML 3ML SQ SCH ×4 (05:37→18:00)
[2020-12-10] MEDS: MAGNESIUM 2GM PREMIX 50ML 50 ML IV SCH (05:48)
[2020-12-10] MEDS: MIDODRINE HCL 5 MG TABLET PEG SCH ×3 (09:14→19:59)
[2020-12-10] MEDS: LEVOTHYROXINE 75 MCG TABLET PO SCH (09:14)
[2020-12-10] MEDS: RISPERIDONE 1 MG TABLET PO SCH ×2 (09:16→19:59)
[2020-12-10] MEDS: HONEY 1 APPL/ML TUBE TP SCH ×4 (09:16→20:07)
[2020-12-10] MEDS: FUROSEMIDE 20MG VIAL IVP SCH ×2 (09:16→20:00)
[2020-12-10] MEDS: VANCOMYCIN 1G 2 GM, 0.9%NACL 20 ML VIAL 80 ML PEG SCH ×8 (09:17→20:04)
[2020-12-10] MEDS: BALSAM PERU/CASTOR OIL 60 GM TUBE TP SCH ×3 (09:17→20:08)
[2020-12-10] MEDS: KCL 20 MEQ ERTAB PO SCH (09:17)
[2020-12-10] MEDS: MAGNESIUM OXIDE 400 MG TABLET PO SCH (09:18)
[2020-12-10 10:19] LABS: INR 1.08 (0.85-1.15); PROTHROMBIN TIME 11.7 SEC (9.6-11.6)
[2020-12-10 10:20] LABS: PARTIAL THROMBOPLASTIN TIME 28.6 SEC (26.3-35.5)
[2020-12-10] MEDS: LEVOFLOXACIN 500 MG/D5W 100 ML 100 ML IV SCH (13:40)
[2020-12-11] VITALS (19 sets, daily range): BP systolic 109–145; BP diastolic 52–79
[2020-12-11] MEDS: IPRATROPIUM/ALBUTEROL SULFATE 3 ML SOLUTION IH SCH ×4 (00:28→18:34)
[2020-12-11] MEDS: LINEZOLID 600 MG/ISO-OSM 300 ML IV SCH (01:13)
[2020-12-11] MEDS: INSULIN HUMULIN R 100 UNIT/ML 3ML SQ SCH ×3 (06:00→11:51)
[2020-12-11 06:12] LABS: BASOPHILS % (AUTO) 0.4 % (0.0-5.0); EOSINOPHILS % (AUTO) 1.1 % (0.0-8.0); HEMATOCRIT 28.4 % (42-54); LYMPHOCYTES % (AUTO) 9.3 % (21.0-51.0); MEAN CORPUSCULAR HEMOGLOBIN 28.9 pg (27.0-33.0); MEAN CORPUSCULAR VOLUME 93.4 fL (79-99); MONOCYTES % (AUTO) 4.9 % (3.0-13.0); NEUTROPHILS % (AUTO) 81.2 % (40.0-77.0); PLATELET COUNT (AUTO) 277 K/uL (130-400); RED BLOOD CELL COUNT(AUTO) 3.04 MIL/uL (4.50-6.20); RED CELL DISTRIBUTION WIDTH 18.7 % (11.0-15.5)
[2020-12-11 06:19] LABS: INR 1.06 (0.85-1.15); PROTHROMBIN TIME 11.5 SEC (9.6-11.6)
[2020-12-11 06:20] LABS: PARTIAL THROMBOPLASTIN TIME 29.2 SEC (26.3-35.5)
[2020-12-11 06:25] LABS: CREATININE 0.7 mg/dL (0.5-1.5); MAGNESIUM 1.8 mg/dL (1.80-2.40); PHOSPHORUS 3.8 mg/dL (2.5-4.9)
[2020-12-11] MEDS: RISPERIDONE 1 MG TABLET PO SCH ×2 (09:00→21:00)
[2020-12-11] MEDS: BALSAM PERU/CASTOR OIL 60 GM TUBE TP SCH ×3 (09:00→21:00)
[2020-12-11] MEDS: KCL 20 MEQ ERTAB PO SCH (09:00)
[2020-12-11] MEDS: HONEY 1 APPL/ML TUBE TP SCH ×3 (09:00→21:00)
[2020-12-11] MEDS: LEVOTHYROXINE 75 MCG TABLET PO SCH (09:00)
[2020-12-11] MEDS: MAGNESIUM OXIDE 400 MG TABLET PO SCH (09:00)
[2020-12-11] MEDS: FUROSEMIDE 20MG VIAL IVP SCH (10:04)
[2020-12-11] MEDS: MIDODRINE HCL 5 MG TABLET PEG SCH ×2 (10:05→21:00)
[2020-12-11] MEDS: VANCOMYCIN 1G 2 GM, 0.9%NACL 20 ML VIAL 80 ML PEG SCH ×4 (11:36→21:00)
[2020-12-11] MEDS ORDERED: MIDAZOLAM HCL 1 MG/ML 2ML VIAL ONE (12:57)
[2020-12-12] VITALS (7 sets, daily range): BP systolic 105–173; BP diastolic 57–83
[2020-12-12] MEDS: LINEZOLID 600 MG/ISO-OSM 300 ML IV SCH ×2 (01:45→14:44)
[2020-12-12 05:09] LABS: HEMATOCRIT 29.1 % (42-54); MEAN CORPUSCULAR HEMOGLOBIN 28.3 pg (27.0-33.0); MEAN CORPUSCULAR HGB CONC 30.6 g/dL (32.0-36.0); MEAN CORPUSCULAR VOLUME 92.7 fL (79-99); RED BLOOD CELL COUNT(AUTO) 3.14 MIL/uL (4.50-6.20); RED CELL DISTRIBUTION WIDTH 18.5 % (11.0-15.5); WHITE BLOOD COUNT (AUTO) 11.2 K/uL (4.8-10.8)
[2020-12-12 05:32] LABS: CREATININE 0.6 mg/dL (0.5-1.5); POTASSIUM 3.6 mmol/L (3.5-5.1)
[2020-12-12] MEDS: INSULIN HUMULIN R 100 UNIT/ML 3ML SQ SCH ×3 (06:00→12:00)
[2020-12-12] MEDS: IPRATROPIUM/ALBUTEROL SULFATE 3 ML SOLUTION IH SCH ×3 (07:40→12:34)
[2020-12-12] MEDS: MAGNESIUM OXIDE 400 MG TABLET PO SCH (09:00)
[2020-12-12] MEDS: VANCOMYCIN 1G 2 GM, 0.9%NACL 20 ML VIAL 80 ML PEG SCH ×6 (09:00→21:00)
[2020-12-12] MEDS: LEVOTHYROXINE 75 MCG TABLET PO SCH (09:00)
[2020-12-12] MEDS: MIDODRINE HCL 5 MG TABLET PEG SCH ×3 (09:00→21:00)
[2020-12-12] MEDS: RISPERIDONE 1 MG TABLET PO SCH ×2 (09:00→21:00)
[2020-12-12] MEDS: KCL 20 MEQ ERTAB PO SCH (09:00)
[2020-12-12] MEDS ORDERED: HONEY 1 APPL/ML TUBE TP SCH (12:15)
[2020-12-12] MEDS: LEVOFLOXACIN 500 MG/D5W 100 ML 100 ML IV SCH (14:30)
[2020-12-12] MEDS: BALSAM PERU/CASTOR OIL 60 GM TUBE TP SCH (21:00)
[2020-12-12] MEDS: HONEY 1 APPL/ML TUBE TP SCH (21:00)
[2020-12-12] MEDS ORDERED: IPRATROPIUM/ALBUTEROL SULFATE 3 ML SOLUTION IH ONE (23:24)
[2020-12-13] MEDS: LINEZOLID 600 MG/ISO-OSM 300 ML IV SCH ×2 (02:54→14:17)
[2020-12-13 04:35] VITALS: BP 153/80
[2020-12-13 05:10] LABS: BASOPHILS % (AUTO) 0.6 % (0.0-5.0); EOSINOPHILS % (AUTO) 1.4 % (0.0-8.0); HEMATOCRIT 29.3 % (42-54); LYMPHOCYTES % (AUTO) 15.7 % (21.0-51.0); MEAN CORPUSCULAR HEMOGLOBIN 27.8 pg (27.0-33.0); MEAN CORPUSCULAR HGB CONC 29.7 g/dL (32.0-36.0); MEAN CORPUSCULAR VOLUME 93.6 fL (79-99); MONOCYTES % (AUTO) 7.5 % (3.0-13.0); NEUTROPHILS % (AUTO) 72.5 % (40.0-77.0); PLATELET COUNT (AUTO) 328 K/uL (130-400); RED BLOOD CELL COUNT(AUTO) 3.13 MIL/uL (4.50-6.20); RED CELL DISTRIBUTION WIDTH 18.6 % (11.0-15.5)
[2020-12-13 05:33] LABS: ALBUMIN 1.2 g/dL (3.5-5.0); BILIRUBIN,TOTAL 0.3 mg/dL (0.2-1.0); CREATININE 0.6 mg/dL (0.5-1.5); POTASSIUM 3.7 mmol/L (3.5-5.1); TOTAL PROTEIN, SERUM 6.1 g/dL (6.0-8.3)
[2020-12-13] MEDS: INSULIN HUMULIN R 100 UNIT/ML 3ML SQ SCH ×3 (06:00→18:00)
[2020-12-13] MEDS: IPRATROPIUM/ALBUTEROL SULFATE 3 ML SOLUTION IH SCH ×3 (07:04→19:43)
[2020-12-13 08:00] VITALS: BP 125/63
[2020-12-13] MEDS: LEVOTHYROXINE 75 MCG TABLET PO SCH (09:00)
[2020-12-13] MEDS: MIDODRINE HCL 5 MG TABLET PEG SCH ×3 (09:00→21:00)
[2020-12-13] MEDS: RISPERIDONE 1 MG TABLET PO SCH ×2 (09:00→21:00)
[2020-12-13] MEDS: BALSAM PERU/CASTOR OIL 60 GM TUBE TP SCH ×3 (09:00→21:00)
[2020-12-13] MEDS: MAGNESIUM OXIDE 400 MG TABLET PO SCH (09:00)
[2020-12-13] MEDS: KCL 20 MEQ ERTAB PO SCH (09:00)
[2020-12-13] MEDS: VANCOMYCIN 1G 2 GM, 0.9%NACL 20 ML VIAL 80 ML PEG SCH ×8 (09:00→21:00)
[2020-12-13 12:00] VITALS: BP 126/70
[2020-12-13] MEDS: LEVOFLOXACIN 500 MG/D5W 100 ML 100 ML IV SCH (13:54)
[2020-12-13] MEDS: HONEY 1 APPL/ML TUBE TP SCH ×2 (14:21→21:00)
[2020-12-13 16:00] VITALS: BP 115/52
[2020-12-13 19:45] VITALS: BP 129/77
[2020-12-13 23:51] VITALS: BP 150/87
[2020-12-14] VITALS (8 sets, daily range): BP systolic 83–157; BP diastolic 54–114
[2020-12-14] MEDS: DEXTROSE 5%-LACTATED RINGERS 1,000 ML IV SCH ×2 (00:20→09:48)
[2020-12-14] MEDS: IPRATROPIUM/ALBUTEROL SULFATE 3 ML SOLUTION IH SCH ×5 (01:17→23:56)
[2020-12-14] MEDS: LINEZOLID 600 MG/ISO-OSM 300 ML IV SCH ×2 (03:14→14:27)
[2020-12-14 04:41] LABS: BASOPHILS % (AUTO) 0.8 % (0.0-5.0); EOSINOPHILS % (AUTO) 1.3 % (0.0-8.0); HEMATOCRIT 27.4 % (42-54); LYMPHOCYTES % (AUTO) 14.3 % (21.0-51.0); MEAN CORPUSCULAR HEMOGLOBIN 28.5 pg (27.0-33.0); MEAN CORPUSCULAR HGB CONC 30.3 g/dL (32.0-36.0); MEAN CORPUSCULAR VOLUME 94.2 fL (79-99); MONOCYTES % (AUTO) 5.8 % (3.0-13.0); NEUTROPHILS % (AUTO) 75.4 % (40.0-77.0); PLATELET COUNT (AUTO) 301 K/uL (130-400); RED BLOOD CELL COUNT(AUTO) 2.91 MIL/uL (4.50-6.20); RED CELL DISTRIBUTION WIDTH 18.2 % (11.0-15.5); WHITE BLOOD COUNT (AUTO) 10.9 K/uL (4.8-10.8)
[2020-12-14 05:14] LABS: BILIRUBIN,TOTAL 0.3 mg/dL (0.2-1.0); CREATININE 0.5 mg/dL (0.5-1.5); MAGNESIUM 1.4 mg/dL (1.80-2.40); POTASSIUM 3.5 mmol/L (3.5-5.1); TOTAL PROTEIN, SERUM 5.4 g/dL (6.0-8.3)
[2020-12-14] MEDS: INSULIN HUMULIN R 100 UNIT/ML 3ML SQ SCH ×4 (06:00→18:00)
[2020-12-14] MEDS: HONEY 1 APPL/ML TUBE TP SCH ×4 (09:00→21:00)
[2020-12-14] MEDS: MAGNESIUM OXIDE 400 MG TABLET PO SCH (09:00)
[2020-12-14] MEDS: MIDODRINE HCL 5 MG TABLET PEG SCH ×3 (09:00→21:00)
[2020-12-14] MEDS: RISPERIDONE 1 MG TABLET PO SCH (09:00)
[2020-12-14] MEDS: VANCOMYCIN 1G 2 GM, 0.9%NACL 20 ML VIAL 80 ML PEG SCH ×8 (09:00→21:00)
[2020-12-14] MEDS: KCL 20 MEQ ERTAB PO SCH (09:00)
[2020-12-14] MEDS: LEVOFLOXACIN 500 MG/D5W 100 ML 100 ML IV SCH ×2 (14:21→14:27)
[2020-12-14] MEDS ORDERED: SODIUM BICARB 50MEQ 50ML VIAL 50 ML ONE (15:22)
[2020-12-14] MEDS ORDERED: LIDOCAINE HCL 400MG/20ML VIAL ONE (15:22)
[2020-12-14] MEDS ORDERED: IODIXANOL 320 MG/ML 100 ML VIAL ONE (15:33)
[2020-12-15] VITALS: BP 148/87
[2020-12-15] MEDS: DEXTROSE 5%-LACTATED RINGERS 1,000 ML IV SCH ×2 (00:06→19:30)
[2020-12-15] MEDS: LINEZOLID 600 MG/ISO-OSM 300 ML IV SCH ×2 (03:22→14:38)
[2020-12-15 04:00] VITALS: BP 132/77
[2020-12-15 04:04] LABS: BASOPHILS % (AUTO) 0.7 % (0.0-5.0); EOSINOPHILS % (AUTO) 1.9 % (0.0-8.0); HEMATOCRIT 28.8 % (42-54); LYMPHOCYTES % (AUTO) 15.7 % (21.0-51.0); MEAN CORPUSCULAR HEMOGLOBIN 28.1 pg (27.0-33.0); MEAN CORPUSCULAR HGB CONC 29.9 g/dL (32.0-36.0); MEAN CORPUSCULAR VOLUME 94.1 fL (79-99); MONOCYTES % (AUTO) 6.6 % (3.0-13.0); PLATELET COUNT (AUTO) 283 K/uL (130-400); RED BLOOD CELL COUNT(AUTO) 3.06 MIL/uL (4.50-6.20); RED CELL DISTRIBUTION WIDTH 17.9 % (11.0-15.5); WHITE BLOOD COUNT (AUTO) 10.6 K/uL (4.8-10.8)
[2020-12-15 04:19] LABS: BILIRUBIN,TOTAL 0.2 mg/dL (0.2-1.0); CREATININE 0.5 mg/dL (0.5-1.5); POTASSIUM 3.4 mmol/L (3.5-5.1); TOTAL PROTEIN, SERUM 5.4 g/dL (6.0-8.3)
[2020-12-15] MEDS: IPRATROPIUM/ALBUTEROL SULFATE 3 ML SOLUTION IH SCH ×3 (07:00→18:25)
[2020-12-15] MEDS: MAGNESIUM OXIDE 400 MG TABLET PO SCH (10:30)
[2020-12-15] MEDS: RISPERIDONE 1 MG TABLET PO SCH ×3 (10:30→23:46)
[2020-12-15] MEDS: KCL 20 MEQ ERTAB PO SCH (10:31)
[2020-12-15] MEDS: INSULIN HUMULIN R 100 UNIT/ML 3ML SQ SCH ×3 (12:00→17:07)
[2020-12-15] MEDS: LEVOFLOXACIN 500 MG/D5W 100 ML 100 ML IV SCH (14:38)
[2020-12-15] MEDS: MIDODRINE HCL 5 MG TABLET PEG SCH (14:39)
[2020-12-15 16:00] VITALS: BP 143/53
[2020-12-15] MEDS: HONEY 1 APPL/ML TUBE TP SCH ×2 (19:30→21:00)
[2020-12-15 20:00] VITALS: BP 133/70
[2020-12-15] MEDS ORDERED: MIDODRINE HCL 5 MG TABLET PEG SCH ×2 (21:00)
[2020-12-16] MEDS: IPRATROPIUM/ALBUTEROL SULFATE 3 ML SOLUTION IH SCH (00:43)
[2020-12-16] MEDS ORDERED: FUROSEMIDE 40 MG TABLET PO SCH (09:00)
== END 2020-12-16 00:55 | DRG 4 ==
LOC: EDH 09:59 → EDHIP 15:38 → 2CH 19:22 → 2DH 12-11 10:03 → 4CH 12-11 14:46 → 4BH 12-11 18:07
PROVIDERS: ADMIT Family Medicine; ATTEND Family Medicine
PROC: 5A1955Z Respiratory Ventilation, Greater than 96 Consecutive Hours (ICD-10-PCS; 2020-11-11)
PROC: 0BH17EZ Insertion of Endotracheal Airway into Trachea, Via Natural or Artificial Opening (ICD-10-PCS; 2020-11-11)
PROC: 05HY33Z Insertion of Infusion Device into Upper Vein, Percutaneous Approach (ICD-10-PCS; 2020-11-23)
PROC: 5A09357 Assistance with Respiratory Ventilation, Less than 24 Consecutive Hours, Continuous Positive Airway Pressure (ICD-10-PCS; 2020-11-25)
PROC: 0B110F4 Bypass Trachea to Cutaneous with Tracheostomy Device, Open Approach (ICD-10-PCS; 2020-11-28)
PROC: 05HY33Z Insertion of Infusion Device into Upper Vein, Percutaneous Approach (ICD-10-PCS; 2020-11-30)
PROC: 0TJB8ZZ Inspection of Bladder, Via Natural or Artificial Opening Endoscopic (ICD-10-PCS; 2020-12-03)
PROC: 0T9B80Z Drainage of Bladder with Drainage Device, Via Natural or Artificial Opening Endoscopic (ICD-10-PCS; 2020-12-03)
PROC: BT101ZZ Fluoroscopy of Bladder using Low Osmolar Contrast (ICD-10-PCS; 2020-12-03)
PROC: 30233N1 Transfusion of Nonautologous Red Blood Cells into Peripheral Vein, Percutaneous Approach (ICD-10-PCS; 2020-12-05)
PROC: 5A09357 Assistance with Respiratory Ventilation, Less than 24 Consecutive Hours, Continuous Positive Airway Pressure (ICD-10-PCS; 2020-12-07)
PROC: 0BH17EZ Insertion of Endotracheal Airway into Trachea, Via Natural or Artificial Opening (ICD-10-PCS; principal; 2020-12-10)
PROC: 5A1955Z Respiratory Ventilation, Greater than 96 Consecutive Hours (ICD-10-PCS; 2020-12-10)
PROC: 05HY33Z Insertion of Infusion Device into Upper Vein, Percutaneous Approach (ICD-10-PCS; 2020-12-10)
PROC: 0DPDXUZ Removal of Feeding Device from Lower Intestinal Tract, External Approach (ICD-10-PCS; 2020-12-14)
PROC: 0DH63UZ Insertion of Feeding Device into Stomach, Percutaneous Approach (ICD-10-PCS; 2020-12-14)
PROC: 3E1 Administration, Physiological Systems and Anatomical Regions, Irrigation (ICD-10-PCS; 2020-12-14)
DX: A41.9 Sepsis, unspecified organism (principal); J96.21 Acute and chronic respiratory failure with hypoxia; J96.22 Acute and chronic respiratory failure with hypercapnia; J69.0 Pneumonitis due to inhalation of food and vomit; R65.21 Severe sepsis with septic shock; R53.2 Functional quadriplegia; G93.41 Metabolic encephalopathy; K68.19 Other retroperitoneal abscess; J18.9 Pneumonia, unspecified organism; A04.72 Enterocolitis due to Clostridium difficile, not specified as recurrent; E87.0 Hyperosmolality and hypernatremia; E87.1 Hypo-osmolality and hyponatremia; G62.81 Critical illness polyneuropathy; G72.81 Critical illness myopathy; J95.851 Ventilator associated pneumonia; N17.9 Acute kidney failure, unspecified; N30.00 Acute cystitis without hematuria; R18.8 Other ascites; Z16.24 Resistance to multiple antibiotics; B37.0 Candidal stomatitis; Z99.11 Dependence on respirator [ventilator] status; R13.12 Dysphagia, oropharyngeal phase; I11.9 Hypertensive heart disease without heart failure; E11.9 Type 2 diabetes mellitus without complications; L89.622 Pressure ulcer of left heel, stage 2; L89.152 Pressure ulcer of sacral region, stage 2; L89.892 Pressure ulcer of other site, stage 2; B96.1 Klebsiella pneumoniae [K. pneumoniae] as the cause of diseases classified elsewhere; Z20.822 Contact with and (suspected) exposure to COVID-19; E83.42 Hypomagnesemia; E86.1 Hypovolemia; E87.6 Hypokalemia; F03.90 Unspecified dementia, unspecified severity, without behavioral disturbance, psychotic disturbance, mood disturbance, and anxiety; F32.9 Major depressive disorder, single episode, unspecified; N35.819 Other urethral stricture, male, unspecified site; R53.81 Other malaise; N48.89 Other specified disorders of penis; E78.5 Hyperlipidemia, unspecified; E66.9 Obesity, unspecified; E03.9 Hypothyroidism, unspecified; B96.89 Other specified bacterial agents as the cause of diseases classified elsewhere; Y95 Nosocomial condition; D64.9 Anemia, unspecified; Z68.30 Body mass index [BMI] 30.0-30.9, adult; Z74.01 Bed confinement status; Z99.81 Dependence on supplemental oxygen; Z87.891 Personal history of nicotine dependence; Z87.01 Personal history of pneumonia (recurrent); Z86.74 Personal history of sudden cardiac arrest; Z83.3 Family history of diabetes mellitus; L89.890 Pressure ulcer of other site, unstageable
CPT/HCPCS: 10030; 31500; 36415; 36569; 36600; 49450; 70450; 71045; 71250; 74018; 74176; 74430; 76705; 76770; 76942; 80048; 80053; 80076; 80202; 81001; 82140; 82360; 82435; 82550; 82570; 82728; 82803; 82947; 82948; 83540; 83550; 83605; 83735; 83874; 83935; 84100; 84132; 84145; 84295; 84300; 84443; 84478; 84484; 84540; 85014; 85018; 85025; 85027; 85378; 85610; 85730; 86140; 86850; 86900; 86901; 86923; 87040; 87070; 87071; 87076; 87077; 87088; 87186; 87205; 87426; 87493; 87804; 88112; 88305; 88312; 93005; 93971; 94002; 94003; 94640; 94660; 94667; 94668; A4354; A6250; B4087; C1751; C1769; C1894; C9113; G0378; J0171; J0330; J1100; J1450; J1650; J1815; J1940; J1956; J2001; J2020; J2185; J2250; J2370; J2543; J2704; J2710; J2930; J2997; J3010; J3370; J3475; J3480; J3490; J7030; J7050; J7070; J7120; P9016; Q9958; Q9967; U0003